=== PATIENT | female | born 1940 | race Caucasian/White ===

== ENCOUNTER 2017-04-13 11:26 | Emergency (ER) | payer MEDICARE, OTHER ==
[~2017-04-13] VITALS: Ht 157.5 cm; Wt 61.2 kg
[~2017-04-13 11:26] MED LIST: ATOR10TA65 PO; CARV3.1260 PO; DEXL60CA2 PO; DICY20TA59 PO; IBUP-1542 PO; LEVO100T87 PO; MECL-77 PO; MEMA5TAB PO; VALS1TAB78 PO
[2017-04-13 11:29] VITALS: Ht 157.5 cm; Wt 61.2 kg
--- NOTE | 2017-04-13 11:56 | ERD ---
ER Documentation Chief Complaint Chief Complaint right side body pain since last night HPI 76y/o female patient with with history of hypothyroidism, presents to the emergency department with her son c/o right flank pain that is started last night. The pain is described as sharp, constant, 6/10, radiated to right pelvic area. The symptoms are associated with general malaise and increased urinary frequency. Aggravating factors: Unknown. Alleviating factors: None. Denies fever, chills, N/V/D. No recent history of previous episodes. Treatment attempted: None. Previous evaluation: None. History was given by patient. ROS SYSTEMIC symptoms: no fever, chills, no night sweats, no weight loss EYE symptoms: No blurred vision, no eye discharge OTOLARYNGEAL symptoms: No hearing loss. No ear pain, no sore throat CARDIOVASCULAR symptoms: No chest pain or discomfort, no palpitations. PULMONARY symptoms: No dyspnea, no cough, no wheezing. GASTROINTESTINAL symptoms: Flank pain, no nausea, no vomiting, no diarrhea MUSCULOSKELETAL symptoms: No arthralgias, no muscle aches. NEUROLOGY symptoms: No confusion, no syncope, no numbness or tingling. SKIN: No rashes Medications Home Meds Active Scripts Nitrofurantoin Monohyd Macrocr* (Macrobid*) 100 Mg Capsr, 100 MG PO BID for 7 Days, CAP Prov:SIERRA MAS MD 04/13/17 Baclofen* (Baclofen*) 10 Mg Tablet, 10 MG PO Q8, #20 TAB Prov:SIERRA MAS MD 04/13/17 Acetaminophen* (Tylenol*) 325 Mg Tablet, 1 TAB PO Q6 Y for PAIN AND OR ELEVATED TEMP, #20 TAB Prov:SIERRA MAS MD 04/13/17 Ibuprofen* (Motrin*) 600 Mg Tab, 600 MG PO Q8, #30 TAB Prov:MARA WOLF DO 02/27/16 Reported Medications Memantine* (Namenda*) 5 Mg Tablet, 5 MG PO BID, #60 TAB 02/27/16 Dicyclomine Hcl* (Bentyl*) 20 Mg Tablet, 20 MG PO TID, TAB 02/27/16 Atorvastatin Calcium (Atorvastatin Calcium) 10 Mg Tablet, 10 MG PO QHS, #30 TAB 10/7/16 Valsartan-Hydrochlorothiazide (Valsartan-HCTZ) 160-25 Mg Tablet, 1 TAB PO DAILY , #30 TAB 02/27/16 Meclizine Hcl* (Meclizine Hcl*) 25 Mg Tablet, 25 MG PO DAILY Y for DIZZINESS, TAB 03/09/15 Carvedilol* (Carvedilol*) 3.125 Mg Tablet, 3.125 MG PO BID, TAB 03/09/15 Levothyroxine Sodium* (Levothyroxine Sodium*) 100 Mcg Tablet, 100 MCG PO DAILY 05/22/12 Dexlansoprazole (Dexilant) 60 Mg , 60 MG PO DAILY 05/22/12 Allergies Allergies: Coded Allergies: No Known Allergy (Unverified , 02/27/16) PMhx/Soc History of Surgery: Yes (THYROIDECTOMY) Anesthesia Reaction: No Hx Neurological Disorder: No Hx Respiratory Disorders: No Hx Cardiac Disorders: Yes (ARRYTHMIA) Hx Psychiatric Problems: No Hx Miscellaneous Medical Probl: No Hx Alcohol Use: No Hx Substance Use: No Hx Tobacco Use: No Physical Exam Vitals Vital Signs Date Time Temp Pulse Resp B/P Pulse Ox O2 Delivery O2 Flow Rate FiO2 04/13/17 11:29 98.5 84 18 169/81 98 Physical Exam Patient is in no acute distress, vital signs stable. Alert and fully oriented. EYES: PERRLA, EOMI, Sclera and conjunctiva appear normal. EARS: Canals clear, tympanic membranes WNL THROAT: Normal oropharynx. NECK: Supple, No lymphadenopathy. Full ROM without pain or tenderness. HEART: RRR, no rubs, murmurs, clicks or gallops. LUNGS: Clear to auscultation. ABDOMEN: Soft, non-tender without masses or hepatosplenomegaly. EXTREMITIES: No edema bilaterally. BACK: Full ROM, no deformity, normal back exam NEURO: Cranial nerves grossly intact, no motor or sensory deficit Results 24 hrs Laboratory Tests Test 04/13/17 12:50 04/13/17 12:59 Urine Color YELLOW Urine Clarity CLEAR Urine pH 5.0 Urine Specific [place] 1.016 Urine Ketones NEGATIVEmg/dL Urine Nitrite NEGATIVEmg/dL Urine Bilirubin NEGATIVEmg/dL Urine Urobilinogen NEGATIVEmg/dL Urine Leukocyte Esterase NEGATIVELeu/ul Urine Microscopic RBC 0/HPF Urine Microscopic WBC 2/HPF Urine Bacteria FEW/HPF Urine Hemoglobin 1+mg/dL Urine Glucose NEGATIVEmg/dL Urine Total Protein NEGATIVEmg/dl Bedside Urine pH (LAB) 5.5 Bedside Urine Protein (LAB) Trace Bedside Urine Glucose (UA) Negative Bedside Urine Ketones (LAB) Negative Bedside Urine Blood 1+ Bedside Urine Nitrite (LAB) Positive Bedside Urine Leukocyte Esterase (L Negative [place] [id number] Radiology Main Line: [phone] DIAGNOSTIC IMAGING REPORT Patient: GINA KANG : 1940 Age: 76 Sex: F MR #: [id number] DOS: 04/13/17 1258 Ordering MD: SIERRA MAS MD Location: [facility] Room/Bed: PROCEDURE: Chest 2 views. CLINICAL INDICATION: Chest pain. TECHNIQUE: PA and lateral views of the chest were obtained. COMPARISON: CR CHEST 03/09/2015 FINDINGS: The heart size is within normal limits. Calcified atherosclerosis is noted in the aorta. Scattered calcified granulomatous disease throughout both lungs appears grossly stable. The lungs are hyperexpanded. No consolidations are identified. No pneumothorax is seen. Osseous structures are intact. IMPRESSION: Calcified atherosclerosis in the aorta. Stable calcified granulomatous disease in both lungs. Hyperexpanded lungs. Overall appearance is unchanged from prior exam. RPTAT: AA .Reji Tanner MD, MD Date Time Electronically viewed and signed by .Reji Tanner MD, MD on 04/13/2017 14:33 .P/ CC: SIERRA MAS MD Procedures/MDM 68y/o white female patient with history of hypothyroidism, presents to the ED c/ o 1 day with right flank pain is . Vital signs stable, Physical exam unremarkable. Differential diagnosis include but not limited to: UTI, musculoskeletal injury, spasm, colitis, viral infection. Pertinent Data: UA: Positive nitrates Physical examination and clinical presentation consistent most likely with UTI. During the ED course the patient remained stable without new complaints. Results and clinical impression discussed with patient who agrees with management. The patient is stable to be treated outpatient and will be discharged home with a Rx for Macrobid and baclofen Side effects of prescribed medications (headache, rash, nausea, vomiting, diarrhea) were reviewed. The patient was instructed to follow up with the primary care provider in the next 48h. If symptoms persist, worsen or new symptoms develop, then patient should return to the ED immediately. Instructions explained and given to patient in Salvadorean with acknowledgment and demonstrated understanding. Disclaimer: Inadvertent spelling and grammatical errors are likely due to EHR/ dictation software use and do not reflect on the overall quality of patient care. Also, please note that the electronic time recorded on this note does not necessarily reflect the actual time of the patient encounter. Departure Diagnosis: Primary Impression: Chest wall pain Additional Impression: UTI (urinary tract infection) Condition: Stable Additional Instructions: Call your primary care doctor TOMORROW for an appointment during the next 1-2 days. See the doctor sooner or return here if your condition worsens before your appointment time. Thank you very much for allowing us to participate in your care. Your health and safety is our top priority at [facility]. Have prescriptions filled and follow precisely the directions on the label. Follow-up with primary care provider during the next 4 days and bring all the information and medications prescribed. If illness has not improved in 2 days, then make an appointment with primary care provider. If the provider is unavailable, return to the Emergency Department immediately. SIERRA MAS MD Apr 13, 2017 11:56
[2017-04-13 13:00] LABS: URINE BLOOD (Dip) POC 1+ (NEGATIVE)
[2017-04-13 13:29] LABS: ADD UMIC YES; UR ASCORBIC ACID NEGATIVE (NEGATIVE); UR BACTERIA FEW /HPF (NONE SEEN); UR BILIRUBIN (Dip) NEGATIVE (NEGATIVE); UR BLOOD (Dip) 1+ mg/dL (NEGATIVE); UR CLARITY CLEAR (CLEAR); UR COLOR YELLOW (YELLOW); UR GLUCOSE (Dip) NEGATIVE (NEGATIVE); UR KETONES (Dip) NEGATIVE (NEGATIVE); UR LEUKOCYTE ESTERASE (Dip) NEGATIVE Leu/ul (NEGATIVE); UR NITRITE (Dip) NEGATIVE (NEGATIVE); UR RBC 0 /HPF (0-5); UR SPECIFIC GRAVITY (Dip) 1.016 (1.003-1.030); UR TOTAL PROTEIN (Dip) NEGATIVE (NEGATIVE); UR UROBILINOGEN (Dip) NEGATIVE (NEGATIVE)
[2017-04-13] MEDS ORDERED: ACET325T33 PO (14:29)
[2017-04-13] MEDS ORDERED: BACL10TA PO (14:29)
--- NOTE | 2017-04-13 14:33 | RADRPT ---
PROCEDURE: Chest 2 views. CLINICAL INDICATION: Chest pain. TECHNIQUE: PA and lateral views of the chest were obtained. COMPARISON: CR CHEST 03/09/2015 FINDINGS: The heart size is within normal limits. Calcified atherosclerosis is noted in the aorta. Scattered c alcified granulomatous disease throughout both lungs appears grossly stable. The lungs are hyperexpa nded. No consolidations are identified. No pneumothorax is seen. Osseous structures are intact. IMPRESSION: Calcified atherosclerosis in the aorta. Stable calcified granulomatous disease in both lungs. Hyperexpanded lungs. Overall appearance is unchanged from prior exam. RPTAT: AA .Reji Tanner MD, Date Time Electronically viewed and signed by .Reji Tanner MD, on 04/13/2017 14:33 .P/
[2017-04-13] MEDS ORDERED: NITR-58 PO (14:44)
== END 2017-04-13 14:58 | disposition home or self-care (01) ==
LOC: FTE 11:26
DX: N39.0 Urinary tract infection, site not specified (principal); R07.89 Other chest pain
CPT/HCPCS: 71020; 81001; 81003; 99285; P9612

== ENCOUNTER 2018-03-01 08:57 | Day surgery (SDC) | END 2018-03-01 17:31 | disposition home or self-care (01) ==

== ENCOUNTER 2018-03-22 20:14 | Emergency (ER) | END 2018-03-22 22:49 | disposition home or self-care (01) ==

== ENCOUNTER 2018-09-29 12:24 | Inpatient (IN) | payer MEDICARE, OTHER ==
[~2018-09-29] VITALS: Ht 165.1 cm; Wt 59.3 kg
[~2018-09-29 12:24] MED LIST changes: +ASPI81TA52 PO; +BRIM10DR10 LEFT EYE; -CARV3.1260 PO; +CARV6.25 PO; +CEPH500C PO; -DEXL60CA2 PO; -DICY20TA59 PO; +ERGO500013 PO; +ERYT1OIN6 LEFT EYE; -IBUP-1542 PO; +KETO5DRO79 LEFT EYE; +LEVO100T82 PO; -LEVO100T87 PO; +LOSA1TAB28 PO; -MECL-77 PO; -MEMA5TAB PO; +PRED5DRO20 LEFT EYE; +RANO500T2 PO; -VALS1TAB78 PO; +[UNRECOGNIZED DRUG - CODE] LEFT EYE
--- NOTE | 2018-09-29 12:50 | ERD ---
ER Documentation Chief Complaint Chief Complaint PAIN WITH SWALLOWING, LIPS SWOLLEN, BURNING FEELING ON R SIDE TORSO X3 DAYS HPI This is an 78-year-old woman with a history of gastritis using omeprazole daily complaining of 30 pound weight loss over the last 3 months mostly due to odynophagia, epigastric pain, pain radiating up to the throat from the epigastrium, daily nausea. She states her symptoms are worse at night when she lays flat and have been increasing in intensity daily over the last 3 months. Patient denies hematemesis, no blood per rectum or melena, no chest pain or shortness of breath, no headache or blurry vision. Patient underwent upper endoscopy about 10 years ago but does not remember the results. ROS All systems reviewed and are negative except as per history of present illness. Medications Home Meds Reported Medications Ergocalciferol (Vitamin D2) (VITAMIN D2) 50,000 Unit Capsule, 41400 UNIT PO Q7D, CAP 09/29/18 Omeprazole* (Omeprazole*) 40 Mg Capsule.dr, 40 MG PO DAILY, #30 CAP 09/29/18 Trjjgc-Ctpinsll-Tecxgxx* (Alexandr RAMÍREZ* 36,000) 36,000 L-114,000-180,000 Unit Capsule.dr, 2 CAP PO WITH MEALS, CAP 09/29/18 Ranolazine* (Ranexa*) 500 Mg Tab.sr.12h, 500 MG PO Q12, TAB 09/29/18 Atorvastatin Calcium (Atorvastatin Calcium) 10 Mg Tablet, 10 MG PO QHS, #30 TAB 09/29/18 Carvedilol* (Carvedilol*) 6.25 Mg Tablet, 6.25 MG PO BID, #60 TAB 09/29/18 Diclofenac Sodium* (Voltaren* Gel) 1% -100 Gm Gel, 2 GM TOP NEEDED, #1 TUB 09/29/18 Levothyroxine Sodium* (Levothyroxine Sodium*) 100 Mcg Tablet, 100 MCG PO BEFORE BREAKFAST, #30 TAB 09/29/18 Discontinued Reported Medications Losartan-Hydrochlorothiazide (Losartan-HCTZ) 100-12.5 Mg Tab, 1 TAB PO DAILY, TAB 03/01/18 Atorvastatin Calcium (Atorvastatin Calcium) 10 Mg Tablet, 10 MG PO QHS, #30 TAB 03/01/18 Levothyroxine Sodium* (Levoxyl*) 100 Mcg Tablet, 100 MCG PO BEFORE BREAKFAST, #30 TAB 03/01/18 Ranolazine* (Ranexa*) 500 Mg Tab.sr.12h, 500 MG PO Q12, TAB 03/01/18 Ergocalciferol (Vitamin D2) (VITAMIN D2) 50,000 Unit Capsule, 94599 UNIT PO EVERY TUESDAY, CAP 03/01/18 Aspirin (Low Dose Aspirin) 81 Mg Tablet.dr, 81 MG PO DAILY, #30 TAB 03/01/18 Carvedilol* (Coreg*) 6.25 Mg Tablet, 6.25 MG PO BID, #60 TAB 03/01/18 Discontinued Scripts Cephalexin* (Cephalexin*) 500 Mg Capsule, 500 MG PO BID for 10 Days, CAP Prov:CHRIS CHINCHILLA MD 03/22/18 Ketorolac Tromethamine Oph (Ketorolac Tromethamine Oph) 0.4%-5 Ml Opht Drops, 1 DROP LEFT EYE QID for pain, #1 EA Prov:CHRIS CHINCHILLA MD 03/22/18 Prednisolone Acetate* (Pred Forte*) 5 Ml Susp, 1 DROP LEFT EYE QID, #1 EA Prov:CHRIS CHINCHILLA MD 03/22/18 Tobramycin-Dexamethasone* (Tobradex* Ophth) 0.3%-0.1% - 2.5 Ml Soln, 1 DROP LEFT EYE q1hr for 1 Day, EA Prov:CHRIS CHINCHILLA MD 03/22/18 Brimonidine Tartrate* (Brimonidine Tartrate*) 0.15%-10ML Drop Opht, 1 DROP LEFT EYE Q8 for pain, #1 EA Prov:CHRIS CHINCHILLA MD 03/22/18 Erythromycin Base (Erythromycin) 1 Gm Oint...g., 1 APPLIC LEFT EYE QHS for 10 Days Prov:CHRIS CHINCHILLA MD 03/22/18 Allergies Allergies: Coded Allergies: Penicillins (Unverified Allergy, Unknown, 09/29/18) PMhx/Soc Hypertension, hyperlipidemia, CHF, hypothyroidism status post total thyroidectomy History of Surgery: Yes (BILAT UPPER LIDS, TOTAL THYROIDECTOMY, REMOVAL FAT UPPER BACK) Anesthesia Reaction: No Hx Neurological Disorder: No Hx Respiratory Disorders: No Hx Cardiac Disorders: Yes (Hypertension, hyperlipidemia, arrhythmia, congestive heart failure) Hx Psychiatric Problems: No Hx Miscellaneous Medical Probl: Yes (Hypothyroidism) Hx Alcohol Use: No Hx Substance Use: No Hx Tobacco Use: No FmHx Family History: No diabetes Physical Exam Vitals Vital Signs Date Temp Pulse Resp B/P (MAP) Pulse Ox O2 O2 Flow FiO2 Time Delivery Rate 09/29/18 Nasal 2 13:59 Cannula 09/29/18 98.2 76 20 153/69 96 12:29 (97) Physical Exam GENERAL: Well-developed, well-nourished, appears dehydrated, afebrile HEENT: Dry mucous membranes, pink conjunctiva, no cervical spine tenderness or step-off deformities, no goiter, no jaundice or icterus, extraocular movements intact without pain. No submandibular induration, and no pharyngeal erythema CARDIAC: Regular rate and rhythm, no murmurs rubs or gallops LUNGS: Clear bilaterally no wheezing crackles or stridor ABDOMEN: Soft nontender, no guarding, no rigidity, no rebound, no psoas sign no obturator sign. Normoactive bowel sounds SKIN: Warm and dry to touch, no abrasions, contusions, or hematomas, no lacerations, no ecchymosis, no target lesions, and without ulcers EXTREMITIES: No clubbing cyanosis or edema, calves are bilaterally symmetrical, no Homans sign, no popliteal cord sign. Distal pulses equal and bilateral PSYCH: Normal affect without agitation or irritability Result Diagram: 09/29/18 1339 09/29/18 1339 Results 24 hrs Laboratory Tests Test 09/29/18 13:39 White Blood Count 3.0 10^3/ul Red Blood Count 4.17 10^6/ul Hemoglobin 12.2 g/dl Hematocrit 36.8 % Mean Corpuscular Volume 88.2 fl Mean Corpuscular Hemoglobin 29.3 pg Mean Corpuscular Hemoglobin Concent 33.2 g/dl Red Cell Distribution Width 11.7 % Platelet Count 119 10^3/UL Mean Platelet Volume 9.7 fl Immature Granulocytes % 0.000 % Neutrophils % 76.7 % Lymphocytes % 10.2 % Monocytes % 9.5 % Eosinophils % 3.3 % Basophils % 0.3 % Nucleated Red Blood Cells % 0.0 /100WBC Immature Granulocytes # 0.000 10^3/ul Neutrophils # 2.3 10^3/ul Lymphocytes # 0.3 10^3/ul Monocytes # 0.3 10^3/ul Eosinophils # 0.1 10^3/ul Basophils # 0.0 10^3/ul Nucleated Red Blood Cells # 0.0 10^3/ul Prothrombin Time 12.3 Sec Prothrombin Time Ratio 1.0 INR International Normalized Ratio 0.90 Activated Partial Thromboplast Time 26.6 Sec Sodium Level 141 mmol/L Potassium Level 4.4 mmol/L Chloride Level 104 mmol/L Carbon Dioxide Level 31 mmol/L Anion Gap 6 Blood Urea Nitrogen 18 mg/dl Creatinine 1.14 mg/dl Est Glomerular Filtrat Rate mL/min mL/min Glucose Level 103 mg/dl Calcium Level 8.5 mg/dl Total Bilirubin 0.4 mg/dl Direct Bilirubin 0.00 mg/dl Indirect Bilirubin 0.4 mg/dl Aspartate Amino Transf (AST/SGOT) 98 IU/L Alanine Aminotransferase (ALT/SGPT) 137 IU/L Alkaline Phosphatase 124 IU/L Troponin I < 0.012 ng/ml Total Protein 7.1 g/dl Albumin 3.9 g/dl Globulin 3.20 g/dl Albumin/Globulin Ratio 1.21 Amylase Level 111 U/L Lipase 319 U/L Current Medications Medications Dose Sig/Tr Start Time Status Last (Trade) Ordered Route PRN Stop Time Admin Dose Reason Admin Sodium 1,000 ml @ Q1H STAT 09/29/18 DC 09/29/18 Chloride 1,000 mls/hr IV 13:10 13:49 09/29/18 14:09 Famotidine 20 mg ONCE STAT 09/29/18 DC 09/29/18 (Pepcid Iv) IV 13:10 13:50 09/29/18 13:20 40 mg ONCE STAT 09/29/18 DC Pantoprazole IV 13:10 (Protonix 09/29/18 13:20 Iv) Ondansetron 4 mg ONCE STAT 09/29/18 DC 09/29/18 HCl (Zofran IV 13:11 13:50 Inj) 09/29/18 13:20 40 ml ONCE STAT 09/29/18 DC 09/29/18 Miscellaneous PO 13:11 13:49 Medication 09/29/18 13:20 (Gi Cocktail (2)) Belladonna/ 2 tab ONCE STAT 09/29/18 DC 09/29/18 Phenobarbital PO 13:11 13:49 () 09/29/18 13:20 40 mg ONCE STAT 09/29/18 DC 09/29/18 Pantoprazole PO 13:21 13:49 (Protonix 09/29/18 13:22 Tab) Procedures/MDM IV line was established patient was placed on conveyor monitor rhythm strip revealed a sinus rhythm at about 80 bpm with upright P and T waves. Patient was afebrile EKG performed, read by me revealed a normal sinus rhythm at 75 bpm, left axis deviation, right ventricular conduction delay QRS duration 100 ms, no concerning ST elevations or depressions noted I administered famotidine 20 mg IV, 1 L normal saline IV for dehydration, Zofran 4 mg IV, pantoprazole 40 mg p.o. x1., And a GI cocktail p.o. CBC reveals a mild leukopenia, electrolytes revealed dehydration, liver function tests revealed mild transaminitis, troponin negative, urinalysis pending I will follow-up. CT scan of the abdomen and pelvis was ordered no signs of acute inflammatory infectious pathology, please refer to radiologist dictation for full report. Patient will be admitted under Dr. Garcia to [facility] for continued medical management and possible GI consultation Departure Diagnosis: Primary Impression: Swallowing disorder Additional Impressions: Unexplained weight loss Dehydration Epigastric abdominal pain Condition: SCOOBY Butler MD September 29, 2018 12:50
[2018-09-29] MEDS ORDERED: SOD CHLORIDE 0.9% 1,000 ML IV STA (13:10)
[2018-09-29] MEDS ORDERED: FAMOTIDINE 20 MG INJ IV STA (13:10)
[2018-09-29] MEDS ORDERED: PANTOPRAZOLE 40 MG INJ IV STA (13:10)
[2018-09-29] MEDS ORDERED: ONDANSETRON 4 MG INJ IV STA (13:11)
[2018-09-29] MEDS ORDERED: LIDOCAINE/MYLANTA 40 ML BTL PO STA (13:11)
[2018-09-29] MEDS ORDERED: BELLADONNA/PHENOBARBITAL TAB PO STA (13:11)
[2018-09-29] MEDS ORDERED: PANTOPRAZOLE (EC) 40 MG TAB PO STA (13:21)
[2018-09-29] MEDS ORDERED: LEVO100T8 PO (13:37)
[2018-09-29] MEDS ORDERED: DICL100G37 TOP (13:37)
[2018-09-29] MEDS ORDERED: ATOR10TA65 PO (13:39)
[2018-09-29] MEDS ORDERED: CARV6.2579 PO (13:39)
[2018-09-29] MEDS ORDERED: RANO500T2 PO (13:39)
[2018-09-29] MEDS ORDERED: OMEP40CA6 PO (13:40)
[2018-09-29] MEDS ORDERED: LIPA1CAP45 PO (13:40)
[2018-09-29] MEDS ORDERED: ERGO500013 PO (13:41)
[2018-09-29] MEDS ORDERED: ERGOCALCIFEROL 50,000 UNIT CAP PO SCH (18:00)
[2018-09-29] MEDS ORDERED: DICLOFENAC SODIUM 1% GEL 100 GM TUBE TP PRN (18:00)
[2018-09-29 18:02] VITALS: Ht 165.1 cm; Wt 59.3 kg
--- NOTE | 2018-09-29 18:30 | CONS ---
Assessment/Plan Assessment/Plan Assessment/Plan (Daily) 1. acute Kidney injury due to Prerenal azotemid due to decreased PO intake 2. Dyphagia 3. H/o CAD 4. H/O HTN 5. H/o Thyroidecotmy, now Hypothyroidsm Plan: seen in ED< IVF D51/2 NS at 50 cc/hr Coreg 6/25 mg BID Levothyroxien for hypothyroidism will follow up Thanks for consultation Consultation Date/Type/Reason Admit Date/Time September 29, 2018 at 14:33 Date of Consultation: September 29, 2018 Type of Consult NEPHROLOGY Reason for Consultation Acute kidney injury Requesting Provider: VANNESSA RECINOS MD Date/Time of Note DATE: 09/29/18 TIME: 18:30 Hx of Present Illness 78-year-old female with PMHx of of chronic GERD, hypertension, possible coronary artery disease, hypothyroidism, status post total thyroidectomy, mild memory impairment. The patient came to ER with difficulty in swallowing. It was painful for her to swallow and she felt pain in the upper part of the chest near the throat. The patient did not have any vomiting. No reported fever or chills. No reported abdominal pain. no oral intake in last 24 hr due to pain with swallowing, GI Dr. Junior has been consulted for dysphagia, On admisison pt was noted to have elevated BUN and Cr, renal has been consulted for acute renal failure on CKD Constitutional: no complaints Eyes: no complaints Respiratory: no complaints Cardiovascular: no complaints Gastrointestinal: pain, other (difficulty swallowing ) Genitourinary: no complaints Musculoskeletal: no complaints Skin: no complaints Neurologic: no complaints Endocrine: no complaints Lymphatic: no complaints Psychological: no complaints Immunologic: no complaints Past Medical History Medical History: coronary artery disease, high cholesterol, hypertension Home Meds Reported Medications Ergocalciferol (Vitamin D2) (VITAMIN D2) 50,000 Unit Capsule, [address] UNIT PO Q7D, CAP 09/29/18 Omeprazole* (Omeprazole*) 40 Mg Capsule., 40 MG PO DAILY, #30 CAP 09/29/18 Xczmui-Oamtwkod-Qwuhgxn* (Crelyndon RAMÍREZ* 36,000) 36,000 L-114,000-180,000 Unit Capsule., 2 CAP PO WITH MEALS, CAP 09/29/18 Ranolazine* (Ranexa*) 500 Mg Tab.sr.12h, 500 MG PO Q12, TAB 09/29/18 Atorvastatin Calcium (Atorvastatin Calcium) 10 Mg Tablet, 10 MG PO QHS, #30 TAB 09/29/18 Carvedilol* (Carvedilol*) 6.25 Mg Tablet, 6.25 MG PO BID, #60 TAB 09/29/18 Diclofenac Sodium* (Voltaren* Gel) 1% -100 Gm Gel, 2 GM TOP NEEDED, #1 TUB 09/29/18 Levothyroxine Sodium* (Levothyroxine Sodium*) 100 Mcg Tablet, 100 MCG PO BEFORE BREAKFAST, #30 TAB 09/29/18 Discontinued Reported Medications Losartan-Hydrochlorothiazide (Losartan-HCTZ) 100-12.5 Mg Tab, 1 TAB PO DAILY, TAB 03/01/18 Atorvastatin Calcium (Atorvastatin Calcium) 10 Mg Tablet, 10 MG PO QHS, #30 TAB 03/01/18 Levothyroxine Sodium* (Levoxyl*) 100 Mcg Tablet, 100 MCG PO BEFORE BREAKFAST, #30 TAB 03/01/18 Ranolazine* (Ranexa*) 500 Mg Tab.sr.12h, 500 MG PO Q12, TAB 03/01/18 Ergocalciferol (Vitamin D2) (VITAMIN D2) 50,000 Unit Capsule, 03142 UNIT PO EVERY TUESDAY, CAP 03/01/18 Aspirin (Low Dose Aspirin) 81 Mg Tablet.dr, 81 MG PO DAILY, #30 TAB 03/01/18 Carvedilol* (Coreg*) 6.25 Mg Tablet, 6.25 MG PO BID, #60 TAB 03/01/18 Discontinued Scripts Cephalexin* (Cephalexin*) 500 Mg Capsule, 500 MG PO BID for 10 Days, CAP Prov:CHRIS CHINCHILLA MD 03/22/18 Ketorolac Tromethamine Oph (Ketorolac Tromethamine Oph) 0.4%-5 Ml Opht Drops, 1 DROP LEFT EYE QID for pain, #1 EA Prov:CHRIS CHINCHILLA MD 03/22/18 Prednisolone Acetate* (Pred Forte*) 5 Ml Susp, 1 DROP LEFT EYE QID, #1 EA Prov:CHRIS CHINCHILLA MD 03/22/18 Tobramycin-Dexamethasone* (Tobradex* Ophth) 0.3%-0.1% - 2.5 Ml Soln, 1 DROP LEFT EYE q1hr for 1 Day, EA Prov:CHRIS CHINCHILLA MD 03/22/18 Brimonidine Tartrate* (Brimonidine Tartrate*) 0.15%-10ML Drop Opht, 1 DROP LEFT EYE Q8 for pain, #1 EA Prov:CHRIS CHINCHILLA MD 03/22/18 Erythromycin Base (Erythromycin) 1 Gm Oint...g., 1 APPLIC LEFT EYE QHS for 10 Days Prov:CHRIS CHINCHILLA MD 03/22/18 Medications Current Medications Dextrose/Sodium Chloride 1,000 ml @ 50 mls/hr Q20H IV ; Start 09/29/18 at 18:00; Status UNV Acetaminophen (Tylenol Tab) 650 mg Q4H PRN PO MILD PAIN(1-3)OR ELEVATED TEMP; Start 09/29/18 at 18:00; Status UNV Levothyroxine Sodium (Synthroid) 100 mcg DAILY@06 PO ; Start 09/30/18 at 06:00; Status UNV Diclofenac Sodium (Voltaren 1% Gel) 2 gm QID PRN TP PAIN; Start 09/29/18 at 18:00; Status UNV Carvedilol (Coreg) 6.25 mg BID PO ; Start 09/29/18 at 21:00; Status UNV Ranolazine (Ranexa) 500 mg Q12 PO ; Start 09/29/18 at 21:00; Status UNV Amylase/Lipase/ Protease (CREON ([id number])) 2 cap WITH MEALS PO ; Start 09/29/18 at 17:55; Status UNV Miscellaneous Information 40 mg DAILY ORAL ; Start 09/30/18 at 09:00; Status UNV Ergocalciferol (Drisdol) 50,000 unit Q7D PO ; Start 09/29/18 at 18:00; Status UNV Enoxaparin Sodium (Lovenox) 30 mg DAILY SC ; Start 09/29/18 at 21:00; Status UNV Allergies: Coded Allergies: Penicillins (Unverified Allergy, Unknown, 09/29/18) Past Surgical History Past Surgical Hx: other (Thyroidectomy, left eye cataract surery ) Family History Significant Family History: no pertinent family hx Social History Alcohol Use: none Smoking Status: Never smoker Drug Use: none Exam/Review of Systems Exam Vitals Vital Signs Date Temp Pulse Resp B/P (MAP) Pulse Ox O2 O2 Flow FiO2 Time Delivery Rate 09/29/18 98.6 68 16 147/63 98 Room Air 16:10 (91) 09/29/18 2 13:59 Constitutional: alert Psych: no complaints Head: normocephalic Eyes: nl conjunctiva ENMT: nl external ears & nose Neck: supple, non-tender Respiratory: normal air movement, congested cough, diminished breath sounds Cardiovascular: regular rate and rhythm, nl pulses Gastrointestinal: soft, non-tender Musculoskeletal: nl extremities to inspection, muscle weakness, swelling Extremities: normal pulses Neurological: FIRE CHIEF II-XII intact, nl mental status, nl speech Skin: nl turgor Lymph: nl lymph nodes Results Result Diagram: 09/29/18 1339 09/29/18 1339 Results 24hrs Laboratory Tests Test 09/29/18 13:39 09/29/18 16:13 White Blood Count 3.0 #L Red Blood Count 4.17 L Hemoglobin 12.2 Hematocrit 36.8 L Mean Corpuscular Volume 88.2 Mean Corpuscular Hemoglobin 29.3 Mean Corpuscular Hemoglobin Concent 33.2 Red Cell Distribution Width 11.7 Platelet Count 119 L Mean Platelet Volume 9.7 Immature Granulocytes % 0.000 L Neutrophils % 76.7 Lymphocytes % 10.2 L Monocytes % 9.5 Eosinophils % 3.3 Basophils % 0.3 Nucleated Red Blood Cells % 0.0 Immature Granulocytes # 0.000 Neutrophils # 2.3 Lymphocytes # 0.3 L Monocytes # 0.3 Eosinophils # 0.1 Basophils # 0.0 Nucleated Red Blood Cells # 0.0 Prothrombin Time 12.3 Prothrombin Time Ratio 1.0 INR International Normalized Ratio 0.90 Activated Partial Thromboplast Time 26.6 Sodium Level 141 Potassium Level 4.4 Chloride Level 104 Carbon Dioxide Level 31 Anion Gap 6 Blood Urea Nitrogen 18 Creatinine 1.14 H Est Glomerular Filtrat Rate mL/min Glucose Level 103 Calcium Level 8.5 Total Bilirubin 0.4 Direct Bilirubin 0.00 Indirect Bilirubin 0.4 Aspartate Amino Transf (AST/SGOT) 98 H Alanine Aminotransferase (ALT/SGPT) 137 H Alkaline Phosphatase 124 H Troponin I < 0.012 Total Protein 7.1 Albumin 3.9 Globulin 3.20 Albumin/Globulin Ratio 1.21 Amylase Level 111 Lipase 319 H Urine Color RED Urine Clarity CLOUDY A Urine pH 7.0 Urine Specific [place] 1.006 Urine Ketones NEGATIVE Urine Nitrite POSITIVE A Urine Bilirubin NEGATIVE Urine Urobilinogen NEGATIVE Urine Leukocyte Esterase 3+ H Urine Microscopic RBC 3 Urine Microscopic WBC > 182 H Urine Bacteria FEW A Urine Hemoglobin 1+ H Urine Glucose NEGATIVE Urine Total Protein NEGATIVE Medications Medication Current Medications Dextrose/Sodium Chloride 1,000 ml @ 50 mls/hr Q20H IV ; Start 09/29/18 at 18:00; Status UNV Acetaminophen (Tylenol Tab) 650 mg Q4H PRN PO MILD PAIN(1-3)OR ELEVATED TEMP; Start 09/29/18 at 18:00; Status UNV Levothyroxine Sodium (Synthroid) 100 mcg DAILY@06 PO ; Start 09/30/18 at 06:00; Status UNV Diclofenac Sodium (Voltaren 1% Gel) 2 gm QID PRN TP PAIN; Start 09/29/18 at 18:00; Status UNV Carvedilol (Coreg) 6.25 mg BID PO ; Start 09/29/18 at 21:00; Status UNV Ranolazine (Ranexa) 500 mg Q12 PO ; Start 09/29/18 at 21:00; Status UNV Amylase/Lipase/ Protease (CREON ([id number])) 2 cap WITH MEALS PO ; Start 09/29/18 at 17:55; Status UNV Miscellaneous Information 40 mg DAILY ORAL ; Start 09/30/18 at 09:00; Status UNV Ergocalciferol (Drisdol) 50,000 unit Q7D PO ; Start 09/29/18 at 18:00; Status UNV Enoxaparin Sodium (Lovenox) 30 mg DAILY SC ; Start 09/29/18 at 21:00; Status UNV MEGHAN BERNARD MD September 29, 2018 18:30
[2018-09-29] MEDS: DEXTROSE 5%-0.45% NACL 1,000 ML IV SCH (18:44)
--- NOTE | 2018-09-29 19:22 | HP ---
DATE OF ADMISSION: 09/29/2018 CHIEF COMPLAINT: Dysphagia and odynophagia. HISTORY OF PRESENT ILLNESS: The patient is an 78-year-old female well known to me from previous admi ssion. The patient has a history of chronic GERD for which she was taking Prilosec. The patient als o has history of hypertension, possible coronary artery disease, hypothyroidism, status post total th yroidectomy, mild memory impairment. The patient came to ER with difficulty in swallowing. It was p ainful for her to swallow and she felt pain in the upper part of the chest near the throat. The alex ent did not have any vomiting. No reported fever or chills. No reported abdominal pain. No reporte d chronic anorexia, although the patient for the last 24 hours had not been eating well. The patient did not have any exertional chest pain recently. No reported leg edema. No reported congestive hea rt failure. No reported headache, dizziness, syncope. No history of dizziness. No history of acute skin rash or any joint swelling. REVIEW OF SYSTEMS: As above, total of 12 systems reviewed, all pertinent positive and negative findi ngs have been described in the HPI. History is obtained with help of medical record and after discussion with the patient's daughter, Josué robert. The patient was seen in the ER and was noted to have stable vital signs. The patient was afebr ile. The patient was slightly leukopenic with a white count of 3, platelet 119, although back in 201 5 she had similar CBC of mild leukopenia and thrombocytopenia. The patient will be admitted for furt her evaluation and management. PAST MEDICAL HISTORY: As stated above. PAST SURGICAL HISTORY: The patient is status post left eye cataract repair at [facility] in 2018. The patient is also status post thyroidectomy. ALLERGIES: THE PATIENT'S DAUGHTER REPORTED THAT SHE IS ALLERGIC TO SOME ANTIBIOTIC, BUT COULD NOT LA OVIDE ANY DETAIL. FAMILY HISTORY: Negative for patient's condition. PHYSICAL EXAMINATION: GENERAL: Revealed the patient to be awake, alert, fairly oriented. VITAL SIGNS: Today, temperature 98.6, pulse 68, respirations 16, blood pressure 147/63, O2 saturatio n 98% on room air. HEENT: Atraumatic, normocephalic head. Conjunctivae and lids are normal. Extraocular movements are intact. Pupils are round, react to light. Nose and ears are normal. Oropharynx is grossly negativ e. NECK: Supple. No mass, no thyromegaly, no lymphadenopathy. LUNGS: Fairly clear. No use of accessory muscles. CARDIOVASCULAR: Regular rate and rhythm. S1, S2 normal. No murmur. ABDOMEN: Soft, nondistended, nontender. No palpable mass or pulsatile mass. EXTREMITIES: No leg edema. Pedal pulses are palpable. SKIN: Without acute rash or ulcer. NEUROLOGIC: The patient is awake, alert, fairly oriented with no gross focal deficit. LABORATORY DATA: WBC 3, hemoglobin 12.2, platelet 119. Sodium 141, potassium 4.4, BUN 18, creatinin e 1.14, glucose 103, calcium 8.5. AST 98, ALT 137, alkaline phosphatase 124. Troponin negative. Al bumin 3.9. Lipase 319, but back in 2016 she also had mildly elevated lipase; however, patient does n ot have any evidence of vomiting or abdominal tenderness. DIAGNOSTIC DATA: CT scan of the abdomen: No evidence of acute intraabdominal or pelvic inflammator y process. No evidence of bowel obstruction or constipation present. No gross renal or ureteral rosalba culi. No evidence of free fluid or free air. Right middle lobe of the lung postsurgical changes. IMPRESSION: 1. Dysphagia and odynophagia. The patient will be started on clear liquid diet. We will start her on Protonix to 40 mg twice a day. We will give gentle IV hydration due to slightly elevated creatini ne. We will hold off on her Lipitor because of elevated liver enzymes. 2. Possible coronary artery disease. Continue Ranexa, Coreg. 3. Hypothyroidism secondary to thyroidectomy. Continue previous dose of Synthroid and we will obtai n TSH and T4. 4. For deep venous thrombosis prophylaxis, we will start Lovenox. The patient apparently does have chronically elevated lipase. Her home medications had Creon 2 capsules t.i.d. with meals; however, d etails are not available. I spoke with Dr. Junior from GI standpoint. Plan of care was discussed with patient's daughter in de tail. We will continue to follow. Dictated By: VANNESSA TREVIÑO/GENEVA Conf#: [id number] DID#: [id number]
[2018-09-29] MEDS: CREON (12k-38k-60k) 1 CAP PO SCH (19:30)
[2018-09-29 20:13] VITALS: BP 129/71; PULSE 83; RESP 18
[2018-09-29] MEDS: ENOXAPARIN 30 MG/0.3 ML SYG SC SCH (20:28)
[2018-09-29] MEDS: RANOLAZINE (SR) 500 MG TAB PO SCH (21:00)
[2018-09-30 02:43] VITALS: BP 122/70; PULSE 80; RESP 18
[2018-09-30] MEDS: LEVOTHYROXINE 100 MCG TAB PO SCH (05:10)
[2018-09-30] MEDS: PANTOPRAZOLE (EC) 40 MG TAB PO SCH ×2 (05:11→18:24)
[2018-09-30] MEDS ORDERED: PANTOPRAZOLE (EC) 40 MG TAB PO SCH (06:00)
[2018-09-30 07:27] VITALS: BP 132/58; PULSE 64; RESP 14
[2018-09-30] MEDS: CREON (12k-38k-60k) 1 CAP PO SCH ×3 (09:00→18:02)
[2018-09-30] MEDS: RANOLAZINE (SR) 500 MG TAB PO SCH ×2 (09:00→20:32)
[2018-09-30] MEDS: ENOXAPARIN 30 MG/0.3 ML SYG SC SCH (09:04)
[2018-09-30] MEDS: DEXTROSE 5%-0.45% NACL 1,000 ML IV SCH (12:10)
--- NOTE | 2018-09-30 13:16 | CONS ---
Assessment/Plan Assessment/Plan Assessment/Plan (Daily) 1. acute Kidney injury due to Prerenal azotemid due to decreased PO intake 2. Dyphagia 3. H/o CAD 4. H/O HTN 5. H/o Thyroidecotmy, now Hypothyroidsm Plan: BUN/Cr 15/1.24, other electrolytes stable IVF D51/2 NS at 50 cc/hr Coreg 6/25 mg BID Levothyroxien for hypothyroidism will follow up Consultation Date/Type/Reason Admit Date/Time September 29, 2018 at 14:33 Initial Consult Date Date/Time of Note DATE: 09/30/18 TIME: 13:16 24 HR Interval Summary Free Text/Dictation BUN/Cr 15/1.24, other electrolytes stable, BP stable Exam/Review of Systems Exam Vitals Vital Signs Date Temp Pulse Resp B/P (MAP) Pulse Ox O2 O2 Flow FiO2 Time Delivery Rate 09/30/18 98.2 64 14 132/58 96 Room Air 07:27 (82) 09/29/18 2 13:59 Intake and Output 09/29/18 09/29/18 09/30/18 1515:00 23:00 07:00 IntakeIntake Total 100 ml 650 ml BalanceBalance 100 ml 650 ml Exam Constitutional: alert Respiratory: normal air movement, congested cough, diminished breath sounds Cardiovascular: regular rate and rhythm, nl pulses Gastrointestinal: soft, non-tender Musculoskeletal: nl extremities to inspection, muscle weakness, swelling Extremities: normal pulses Neurological: SAFETY AND HEALTH MANAGER II-XII intact, nl mental status, nl speech Results Result Diagram: 09/30/18 0449 09/30/18 044 Results 24hrs Laboratory Tests Test 09/29/18 13:39 09/29/18 16:13 09/30/18 04:49 White Blood Count 3.0 #L 2.9 L Red Blood Count 4.17 L 3.97 L Hemoglobin 12.2 11.5 L Hematocrit 36.8 L 35.5 L Mean Corpuscular Volume 88.2 89.4 Mean Corpuscular Hemoglobin 29.3 29.0 Mean Corpuscular Hemoglobin Concent 33.2 32.4 Red Cell Distribution Width 11.7 11.8 Platelet Count 119 L 108 L Mean Platelet Volume 9.7 10.2 Immature Granulocytes % 0.000 L 0.300 Neutrophils % 76.7 70.2 Lymphocytes % 10.2 L 13.6 L Monocytes % 9.5 11.8 H Eosinophils % 3.3 3.8 Basophils % 0.3 0.3 Nucleated Red Blood Cells % 0.0 0.0 Immature Granulocytes # 0.000 0.010 Neutrophils # 2.3 2.0 Lymphocytes # 0.3 L 0.4 L Monocytes # 0.3 0.3 Eosinophils # 0.1 0.1 Basophils # 0.0 0.0 Nucleated Red Blood Cells # 0.0 0.0 Prothrombin Time 12.3 Prothrombin Time Ratio 1.0 INR International Normalized Ratio 0.90 Activated Partial Thromboplast Time 26.6 Sodium Level 141 142 Potassium Level 4.4 4.5 Chloride Level 104 105 Carbon Dioxide Level 31 32 H Anion Gap 6 5 Blood Urea Nitrogen 18 15 Creatinine 1.14 H 1.24 H Est Glomerular Filtrat Rate mL/min Glucose Level 103 99 Calcium Level 8.5 8.5 Total Bilirubin 0.4 0.4 Direct Bilirubin 0.00 0.00 Indirect Bilirubin 0.4 0.4 Aspartate Amino Transf (AST/SGOT) 98 H 65 H Alanine Aminotransferase (ALT/SGPT) 137 H 108 H Alkaline Phosphatase 124 H 99 Troponin I < 0.012 Total Protein 7.1 6.2 Albumin 3.9 3.4 Globulin 3.20 2.80 Albumin/Globulin Ratio 1.21 1.21 Amylase Level 111 Lipase 319 H Urine Color RED Urine Clarity CLOUDY A Urine pH 7.0 Urine Specific [place] 1.006 Urine Ketones NEGATIVE Urine Nitrite POSITIVE A Urine Bilirubin NEGATIVE Urine Urobilinogen NEGATIVE Urine Leukocyte Esterase 3+ H Urine Microscopic RBC 3 Urine Microscopic WBC > 182 H Urine Bacteria FEW A Urine Hemoglobin 1+ H Urine Glucose NEGATIVE Urine Total Protein NEGATIVE Triglycerides Level 126 Cholesterol Level 175 LDL Cholesterol, Calculated 109 HDL Cholesterol 41 Cholesterol/HDL Ratio 4.2 Thyroid Stimulating Hormone (TSH) 6.160 H Free Thyroxine 0.79 L Medications Medication Current Medications Dextrose/Sodium Chloride 1,000 ml @ 50 mls/hr Q20H IV Last administered on 09/30/18at 12:10; Admin Dose 50 MLS/HR; Start 09/29/18 at 18:00 Acetaminophen (Tylenol Tab) 650 mg Q4H PRN PO MILD PAIN(1-3)OR ELEVATED TEMP; Start 09/29/18 at 18:00 Levothyroxine Sodium (Synthroid) 100 mcg DAILY@06 PO Last administered on 09/30/18 05:10; Admin Dose 100 MCG; Start 09/30/18 at 06:00 Diclofenac Sodium (Voltaren 1% Gel) 2 gm QID PRN TP PAIN; Start 09/29/18 at 18:00 Carvedilol (Coreg) 6.25 mg BID PO Last administered on 09/30/18 09:00; Admin Dose 6.25 MG; Start 09/29/18 at 21:00 Ranolazine (Ranexa) 500 mg Q12 PO Last administered on 09/30/18 09:00; Admin Dose 500 MG; Start 09/29/18 at 21:00 Amylase/Lipase/ Protease (CREON ([id number])) 2 cap WITH MEALS PO Last administered on 09/30/18 12:10; Admin Dose 2 CAP; Start 09/29/18 at 19:30 Ergocalciferol (Drisdol) 50,000 unit Q7D PO Last administered on 09/29/18at 18:43; Admin Dose 50,000 UNIT; Start 09/29/18 at 18:00 Enoxaparin Sodium (Lovenox) 30 mg DAILY SC Last administered on 09/30/18 09:04; Admin Dose 30 MG; Start 09/29/18 at 21:00 Pantoprazole (Protonix Tab) 40 mg BID@0600,1800 PO Last administered on 09/30/18 05:11; Admin Dose 40 MG; Start 09/30/18 at 06:00 MEGHAN BERNARD MD September 30, 2018 13:16
--- NOTE | 2018-09-30 14:28 | PN ---
Date/Time of Note Date/Time of Note DATE: 09/30/18 TIME: 14:27 Assessment/Plan VTE Prophylaxis Risk score (from Ns)>0 risk: 5 SCD applied (from Nsg): Yes Lines/Catheters IV Catheter Type (from Nrs): Peripheral IV Urinary Cath still in place: No Assessment/Plan Assessment/Plan 1. Dysphagia and odynophagia. The patient will be started on clear liquid diet. We will start her on Protonix to 40 mg twice a day. We will give gentle IV hydration due to slightly elevated creatinine. We will hold off on her Lipitor because of elevated liver enzymes. 2. Possible coronary artery disease. Continue Ranexa, Coreg. 3. Hypothyroidism secondary to thyroidectomy. Continue previous dose of Synthroid and we will obtain TSH and T4. 4. For deep venous thrombosis prophylaxis, we will start Lovenox. The patient apparently does have chronically elevated lipase. Her home medications had Creon 2 capsules t.i.d. with meals; however, details are not available. Result Diagram: 09/30/18 0449 09/30/18 0449 Results 24hrs Laboratory Tests Test 09/29/18 16:13 09/30/18 04:49 Urine Color RED Urine Clarity CLOUDY A Urine pH 7.0 Urine Specific [place] 1.006 Urine Ketones NEGATIVE Urine Nitrite POSITIVE A Urine Bilirubin NEGATIVE Urine Urobilinogen NEGATIVE Urine Leukocyte Esterase 3+ H Urine Microscopic RBC 3 Urine Microscopic WBC > 182 H Urine Bacteria FEW A Urine Hemoglobin 1+ H Urine Glucose NEGATIVE Urine Total Protein NEGATIVE White Blood Count 2.9 L Red Blood Count 3.97 L Hemoglobin 11.5 L Hematocrit 35.5 L Mean Corpuscular Volume 89.4 Mean Corpuscular Hemoglobin 29.0 Mean Corpuscular Hemoglobin Concent 32.4 Red Cell Distribution Width 11.8 Platelet Count 108 L Mean Platelet Volume 10.2 Immature Granulocytes % 0.300 Neutrophils % 70.2 Lymphocytes % 13.6 L Monocytes % 11.8 H Eosinophils % 3.8 Basophils % 0.3 Nucleated Red Blood Cells % 0.0 Immature Granulocytes # 0.010 Neutrophils # 2.0 Lymphocytes # 0.4 L Monocytes # 0.3 Eosinophils # 0.1 Basophils # 0.0 Nucleated Red Blood Cells # 0.0 Sodium Level 142 Potassium Level 4.5 Chloride Level 105 Carbon Dioxide Level 32 H Anion Gap 5 Blood Urea Nitrogen 15 Creatinine 1.24 H Est Glomerular Filtrat Rate mL/min Glucose Level 99 Calcium Level 8.5 Total Bilirubin 0.4 Direct Bilirubin 0.00 Indirect Bilirubin 0.4 Aspartate Amino Transf (AST/SGOT) 65 H Alanine Aminotransferase (ALT/SGPT) 108 H Alkaline Phosphatase 99 Total Protein 6.2 Albumin 3.4 Globulin 2.80 Albumin/Globulin Ratio 1.21 Triglycerides Level 126 Cholesterol Level 175 LDL Cholesterol, Calculated 109 HDL Cholesterol 41 Cholesterol/HDL Ratio 4.2 Thyroid Stimulating Hormone (TSH) 6.160 H Free Thyroxine 0.79 L Exam/Review of Systems Exam Vitals Vital Signs Date Temp Pulse Resp B/P (MAP) Pulse Ox O2 O2 Flow FiO2 Time Delivery Rate 09/30/18 98.2 64 14 132/58 96 Room Air 07:27 (82) 09/29/18 2 13:59 Intake and Output 09/29/18 09/29/18 09/30/18 1515:00 23:00 07:00 IntakeIntake Total 100 ml 650 ml BalanceBalance 100 ml 650 ml Results Results 24hrs Laboratory Tests Test 09/29/18 16:13 09/30/18 04:49 Urine Color RED Urine Clarity CLOUDY A Urine pH 7.0 Urine Specific [place] 1.006 Urine Ketones NEGATIVE Urine Nitrite POSITIVE A Urine Bilirubin NEGATIVE Urine Urobilinogen NEGATIVE Urine Leukocyte Esterase 3+ H Urine Microscopic RBC 3 Urine Microscopic WBC > 182 H Urine Bacteria FEW A Urine Hemoglobin 1+ H Urine Glucose NEGATIVE Urine Total Protein NEGATIVE White Blood Count 2.9 L Red Blood Count 3.97 L Hemoglobin 11.5 L Hematocrit 35.5 L Mean Corpuscular Volume 89.4 Mean Corpuscular Hemoglobin 29.0 Mean Corpuscular Hemoglobin Concent 32.4 Red Cell Distribution Width 11.8 Platelet Count 108 L Mean Platelet Volume 10.2 Immature Granulocytes % 0.300 Neutrophils % 70.2 Lymphocytes % 13.6 L Monocytes % 11.8 H Eosinophils % 3.8 Basophils % 0.3 Nucleated Red Blood Cells % 0.0 Immature Granulocytes # 0.010 Neutrophils # 2.0 Lymphocytes # 0.4 L Monocytes # 0.3 Eosinophils # 0.1 Basophils # 0.0 Nucleated Red Blood Cells # 0.0 Sodium Level 142 Potassium Level 4.5 Chloride Level 105 Carbon Dioxide Level 32 H Anion Gap 5 Blood Urea Nitrogen 15 Creatinine 1.24 H Est Glomerular Filtrat Rate mL/min Glucose Level 99 Calcium Level 8.5 Total Bilirubin 0.4 Direct Bilirubin 0.00 Indirect Bilirubin 0.4 Aspartate Amino Transf (AST/SGOT) 65 H Alanine Aminotransferase (ALT/SGPT) 108 H Alkaline Phosphatase 99 Total Protein 6.2 Albumin 3.4 Globulin 2.80 Albumin/Globulin Ratio 1.21 Triglycerides Level 126 Cholesterol Level 175 LDL Cholesterol, Calculated 109 HDL Cholesterol 41 Cholesterol/HDL Ratio 4.2 Thyroid Stimulating Hormone (TSH) 6.160 H Free Thyroxine 0.79 L Medications Medication Current Medications Dextrose/Sodium Chloride 1,000 ml @ 50 mls/hr Q20H IV Last administered on 09/30/18 12:10; Admin Dose 50 MLS/HR; Start 09/29/18 at 18:00 Acetaminophen (Tylenol Tab) 650 mg Q4H PRN PO MILD PAIN(1-3)OR ELEVATED TEMP; Start 09/29/18 at 18:00 Levothyroxine Sodium (Synthroid) 100 mcg DAILY@06 PO Last administered on 09/30/18 05:10; Admin Dose 100 MCG; Start 09/30/18 at 06:00 Diclofenac Sodium (Voltaren 1% Gel) 2 gm QID PRN TP PAIN; Start 09/29/18 at 18 :00 Carvedilol (Coreg) 6.25 mg BID PO Last administered on 09/30/18 09:00; Admin Dose 6.25 MG; Start 09/29/18 at 21:00 Ranolazine (Ranexa) 500 mg Q12 PO Last administered on 09/30/18 09:00; Admin Dose 500 MG; Start 09/29/18 at 21:00 Amylase/Lipase/ Protease (CREON ([id number])) 2 cap WITH MEALS PO Last administered on 09/30/18 12:10; Admin Dose 2 CAP; Start 09/29/18 at 19:30 Ergocalciferol (Drisdol) 50,000 unit Q7D PO Last administered on 09/29/18 18:43; Admin Dose 50,000 UNIT; Start 09/29/18 at 18:00 Enoxaparin Sodium (Lovenox) 30 mg DAILY SC Last administered on 09/30/18 09:04; Admin Dose 30 MG; Start 09/29/18 at 21:00 Pantoprazole (Protonix Tab) 40 mg BID@0600,1800 PO Last administered on 09/30/18at 05:11; Admin Dose 40 MG; Start 09/30/18 at 06:00 ELIA COOK September 30, 2018 14:28
[2018-09-30 14:38] VITALS: BP 163/70; PULSE 63; RESP 16
--- NOTE | 2018-09-30 16:20 | PN ---
Date/Time of Note Date/Time of Note DATE: 09/30/18 TIME: 14:28 Assessment/Plan VTE Prophylaxis Risk score (from Nsg)>0 risk: 5 SCD applied (from Nsg): Yes Lines/Catheters IV Catheter Type (from Nrs): Peripheral IV Urinary Cath still in place: No Assessment/Plan Assessment/Plan 1. Dysphagia and odynophagia. The patient will be started on clear liquid diet. We will start her on Protonix to 40 mg twice a day. We will give gentle IV hydration due to slightly elevated creatinine. We will hold off on her Lipitor because of elevated liver enzymes. 2. Possible coronary artery disease. Continue Ranexa, Coreg. 3. Hypothyroidism secondary to thyroidectomy. Continue previous dose of Synthroid and we will obtain TSH and T4. 4. wojciech -nephro consult 5.chronically elevated lipasHer home medications had Creon 2 capsules t.i.d. with meals; however, details are not available. 6. For deep venous thrombosis prophylaxis, we will start Lovenox. Result Diagram: 09/30/18 0449 09/30/18 0449 Results 24hrs Laboratory Tests Test 09/29/18 16:13 09/30/18 04:49 Urine Color RED Urine Clarity CLOUDY A Urine pH 7.0 Urine Specific [place] 1.006 Urine Ketones NEGATIVE Urine Nitrite POSITIVE A Urine Bilirubin NEGATIVE Urine Urobilinogen NEGATIVE Urine Leukocyte Esterase 3+ H Urine Microscopic RBC 3 Urine Microscopic WBC > 182 H Urine Bacteria FEW A Urine Hemoglobin 1+ H Urine Glucose NEGATIVE Urine Total Protein NEGATIVE White Blood Count 2.9 L Red Blood Count 3.97 L Hemoglobin 11.5 L Hematocrit 35.5 L Mean Corpuscular Volume 89.4 Mean Corpuscular Hemoglobin 29.0 Mean Corpuscular Hemoglobin Concent 32.4 Red Cell Distribution Width 11.8 Platelet Count 108 L Mean Platelet Volume 10.2 Immature Granulocytes % 0.300 Neutrophils % 70.2 Lymphocytes % 13.6 L Monocytes % 11.8 H Eosinophils % 3.8 Basophils % 0.3 Nucleated Red Blood Cells % 0.0 Immature Granulocytes # 0.010 Neutrophils # 2.0 Lymphocytes # 0.4 L Monocytes # 0.3 Eosinophils # 0.1 Basophils # 0.0 Nucleated Red Blood Cells # 0.0 Sodium Level 142 Potassium Level 4.5 Chloride Level 105 Carbon Dioxide Level 32 H Anion Gap 5 Blood Urea Nitrogen 15 Creatinine 1.24 H Est Glomerular Filtrat Rate mL/min Glucose Level 99 Calcium Level 8.5 Total Bilirubin 0.4 Direct Bilirubin 0.00 Indirect Bilirubin 0.4 Aspartate Amino Transf (AST/SGOT) 65 H Alanine Aminotransferase (ALT/SGPT) 108 H Alkaline Phosphatase 99 Total Protein 6.2 Albumin 3.4 Globulin 2.80 Albumin/Globulin Ratio 1.21 Triglycerides Level 126 Cholesterol Level 175 LDL Cholesterol, Calculated 109 HDL Cholesterol 41 Cholesterol/HDL Ratio 4.2 Thyroid Stimulating Hormone (TSH) 6.160 H Free Thyroxine 0.79 L Exam/Review of Systems Exam Vitals Vital Signs Date Temp Pulse Resp B/P (MAP) Pulse Ox O2 O2 Flow FiO2 Time Delivery Rate 09/30/18 98.2 64 14 132/58 96 Room Air 07:27 (82) 09/29/18 2 13:59 Intake and Output 09/29/18 09/29/18 09/30/18 1515:00 23:00 07:00 IntakeIntake Total 100 ml 650 ml BalanceBalance 100 ml 650 ml Results Results 24hrs Laboratory Tests Test 09/29/18 16:13 09/30/18 04:49 Urine Color RED Urine Clarity CLOUDY A Urine pH 7.0 Urine Specific [place] 1.006 Urine Ketones NEGATIVE Urine Nitrite POSITIVE A Urine Bilirubin NEGATIVE Urine Urobilinogen NEGATIVE Urine Leukocyte Esterase 3+ H Urine Microscopic RBC 3 Urine Microscopic WBC > 182 H Urine Bacteria FEW A Urine Hemoglobin 1+ H Urine Glucose NEGATIVE Urine Total Protein NEGATIVE White Blood Count 2.9 L Red Blood Count 3.97 L Hemoglobin 11.5 L Hematocrit 35.5 L Mean Corpuscular Volume 89.4 Mean Corpuscular Hemoglobin 29.0 Mean Corpuscular Hemoglobin Concent 32.4 Red Cell Distribution Width 11.8 Platelet Count 108 L Mean Platelet Volume 10.2 Immature Granulocytes % 0.300 Neutrophils % 70.2 Lymphocytes % 13.6 L Monocytes % 11.8 H Eosinophils % 3.8 Basophils % 0.3 Nucleated Red Blood Cells % 0.0 Immature Granulocytes # 0.010 Neutrophils # 2.0 Lymphocytes # 0.4 L Monocytes # 0.3 Eosinophils # 0.1 Basophils # 0.0 Nucleated Red Blood Cells # 0.0 Sodium Level 142 Potassium Level 4.5 Chloride Level 105 Carbon Dioxide Level 32 H Anion Gap 5 Blood Urea Nitrogen 15 Creatinine 1.24 H Est Glomerular Filtrat Rate mL/min Glucose Level 99 Calcium Level 8.5 Total Bilirubin 0.4 Direct Bilirubin 0.00 Indirect Bilirubin 0.4 Aspartate Amino Transf (AST/SGOT) 65 H Alanine Aminotransferase (ALT/SGPT) 108 H Alkaline Phosphatase 99 Total Protein 6.2 Albumin 3.4 Globulin 2.80 Albumin/Globulin Ratio 1.21 Triglycerides Level 126 Cholesterol Level 175 LDL Cholesterol, Calculated 109 HDL Cholesterol 41 Cholesterol/HDL Ratio 4.2 Thyroid Stimulating Hormone (TSH) 6.160 H Free Thyroxine 0.79 L Medications Medication Current Medications Dextrose/Sodium Chloride 1,000 ml @ 50 mls/hr Q20H IV Last administered on 09/30/18 12:10; Admin Dose 50 MLS/HR; Start 09/29/18 at 18:00 Acetaminophen (Tylenol Tab) 650 mg Q4H PRN PO MILD PAIN(1-3)OR ELEVATED TEMP; Start 09/29/18 at 18:00 Levothyroxine Sodium (Synthroid) 100 mcg DAILY@06 PO Last administered on 09/30/18 05:10; Admin Dose 100 MCG; Start 09/30/18 at 06:00 Diclofenac Sodium (Voltaren 1% Gel) 2 gm QID PRN TP PAIN; Start 09/29/18 at 18:00 Carvedilol (Coreg) 6.25 mg BID PO Last administered on 09/30/18 09:00; Admin Dose 6.25 MG; Start 09/29/18 at 21:00 Ranolazine (Ranexa) 500 mg Q12 PO Last administered on 09/30/18 09:00; Admin Dose 500 MG; Start 09/29/18 at 21:00 Amylase/Lipase/ Protease (CREON ([id number])) 2 cap WITH MEALS PO Last a dministered on 09/30/18 12:10; Admin Dose 2 CAP; Start 09/29/18 at 19:30 Ergocalciferol (Drisdol) 50,000 unit Q7D PO Last administered on 09/29/18 18:43; Admin Dose 50,000 UNIT; Start 09/29/18 at 18:00 Enoxaparin Sodium (Lovenox) 30 mg DAILY SC Last administered on 09/30/18 09:04; Admin Dose 30 MG; Start 09/29/18 at 21:00 Pantoprazole (Protonix Tab) 40 mg BID@0600,1800 PO Last administered on 09/30/18at 05:11; Admin Dose 40 MG; Start 09/30/18 at 06:00 ELIA COOK September 30, 2018 14:38
[2018-09-30 19:25] VITALS: BP 160/67; PULSE 63; RESP 18
[2018-10-01 02:20] VITALS: BP 157/67; PULSE 69; RESP 18
--- NOTE | 2018-10-01 04:54 | PN ---
Date/Time of Note Date/Time of Note DATE: 10/01/18 TIME: 04:53 Assessment/Plan VTE Prophylaxis Risk score (from Nsg)>0 risk: 3 SCD applied (from Nsg): Yes Lines/Catheters IV Catheter Type (from Nrsg): Peripheral IV Urinary Cath still in place: No Assessment/Plan Assessment/Plan 1. Dysphagia and odynophagia. The patient will be started on clear liquid diet. We will start her on Protonix to 40 mg twice a day. We will give gentle IV hydration due to slightly elevated creatinine. We will hold off on her Lipitor because of elevated liver enzymes. 2. Possible coronary artery disease. Continue Ranexa, Coreg. 3. Hypothyroidism secondary to thyroidectomy. Continue previous dose of Synthroid and we will obtain TSH and T4. 4. wojciech -nephro consult 5.chronically elevated lipasHer home medications had Creon 2 capsules t.i.d. with meals; however, details are not available. 6. For deep venous thrombosis prophylaxis, we will start Lovenox. Result Diagram: 09/30/18 0449 09/30/18 0449 Subjective 24 Hr Interval Summary Free Text/Dictation For EGD on Tue Exam/Review of Systems Exam Vitals Vital Signs Date Temp Pulse Resp B/P (MAP) Pulse Ox O2 O2 Flow FiO2 Time Delivery Rate 10/01/18 97.4 69 18 157/67 94 Room Air 02:20 (97) 09/29/18 2 13:59 Intake and Output 09/30/18 09/30/18 10/01/18 1515:00 23:00 07:00 IntakeIntake Total 1300 ml 750 ml BalanceBalance 1300 ml 750 ml Medications Medication Current Medications Dextrose/Sodium Chloride 1,000 ml @ 50 mls/hr Q20H IV Last administered on 09/30/18at 12:10; Admin Dose 50 MLS/HR; Start 09/29/18 at 18:00 Acetaminophen (Tylenol Tab) 650 mg Q4H PRN PO MILD PAIN(1-3)OR ELEVATED TEMP; Start 09/29/18 at 18:00 Levothyroxine Sodium (Synthroid) 100 mcg DAILY@06 PO Last administered on 09/30/18at 05:10; Admin Dose 100 MCG; Start 09/30/18 at 06:00 Diclofenac Sodium (Voltaren 1% Gel) 2 gm QID PRN TP PAIN; Start 09/29/18 at 18:00 Carvedilol (Coreg) 6.25 mg BID PO Last administered on 09/30/18 20:34; Admin Dose 6.25 MG; Start 09/29/18 at 21:00 Ranolazine (Ranexa) 500 mg Q12 PO Last administered on 09/30/18 20:32; Admin Dose 500 MG; Start 09/29/18 at 21:00 Amylase/Lipase/ Protease (CREON ([id number])) 2 cap WITH MEALS PO Last adm inistered on 09/30/18 18:02; Admin Dose 2 CAP; Start 09/29/18 at 19:30 Ergocalciferol (Drisdol) 50,000 unit Q7D PO Last administered on 09/29/18 18:43; Admin Dose 50,000 UNIT; Start 09/29/18 at 18:00 Enoxaparin Sodium (Lovenox) 30 mg DAILY SC Last administered on 09/30/18 09:04; Admin Dose 30 MG; Start 09/29/18 at 21:00 Pantoprazole (Protonix Tab) 40 mg BID@0600,1800 PO Last administered on 09/30/18 18:24; Admin Dose 40 MG; Start 09/30/18 at 06:00 ELIA COOK October 01, 2018 04:54
[2018-10-01] MEDS: LEVOTHYROXINE 100 MCG TAB PO SCH (05:53)
[2018-10-01] MEDS: PANTOPRAZOLE (EC) 40 MG TAB PO SCH ×2 (05:54→18:00)
[2018-10-01] MEDS ORDERED: PHENOL 1.4% SOLN 180 ML BTL MT PRN (06:30)
--- NOTE | 2018-10-01 08:04 | CONS ---
Assessment/Plan Assessment/Plan Assessment/Plan (Daily) 1. acute Kidney injury due to Prerenal azotemid due to decreased PO intake 2. Dyphagia 3. H/o CAD 4. H/O HTN 5. H/o Thyroidecotmy, now Hypothyroidsm Plan: BUN/Cr improved to 11/1.21, other electrolytes stable IVF D51/2 NS at 50 cc/hr Coreg 6/25 mg BID Levothyroxien for hypothyroidism will follow up Consultation Date/Type/Reason Admit Date/Time September 29, 2018 at 14:33 Initial Consult Date Type of Consult NEPHROLOGY Requesting Provider: VANNESSA RECINOS MD Date/Time of Note DATE: 10/01/18 TIME: 08:04 Exam/Review of Systems Exam Vitals Vital Signs Date Temp Pulse Resp B/P (MAP) Pulse Ox O2 O2 Flow FiO2 Time Delivery Rate 10/01/18 97.4 69 18 157/67 94 Room Air 02:20 (97) 09/29/18 2 13:59 Intake and Output 09/30/18 09/30/18 10/01/18 1515:00 23:00 07:00 IntakeIntake Total 1300 ml 750 ml 550 ml BalanceBalance 1300 ml 750 ml 550 ml Exam Constitutional: alert Respiratory: decreased BS at bases, no wheezing/Crackles Cardiovascular: regular rate and rhythm, nl pulses Gastrointestinal: soft, non-tender Musculoskeletal: nl extremities to inspection, muscle weakness, swelling Extremities: normal pulses Neurological: REGISTERED NURSE BONE MARROW TRANSPLANT II-XII intact, nl mental status, nl speech Results Result Diagram: 10/01/18 0432 10/01/18 0432 Results 24hrs Laboratory Tests Test 10/01/18 04:32 White Blood Count 2.2 #L Red Blood Count 3.69 L Hemoglobin 10.7 L Hematocrit 33.1 L Mean Corpuscular Volume 89.7 Mean Corpuscular Hemoglobin 29.0 Mean Corpuscular Hemoglobin Concent 32.3 Red Cell Distribution Width 11.7 Platelet Count 108 L Mean Platelet Volume 10.1 Immature Granulocytes % 0.500 H Neutrophils % 58.9 Lymphocytes % 19.4 Monocytes % 14.7 H Eosinophils % 6.0 Basophils % 0.5 Nucleated Red Blood Cells % 0.0 Immature Granulocytes # 0.010 Neutrophils # 1.3 L Lymphocytes # 0.4 L Monocytes # 0.3 Eosinophils # 0.1 Basophils # 0.0 Nucleated Red Blood Cells # 0.0 Sodium Level 142 Potassium Level 4.2 Chloride Level 108 Carbon Dioxide Level 31 Anion Gap 3 L Blood Urea Nitrogen 11 Creatinine 1.21 H Est Glomerular Filtrat Rate mL/min Glucose Level 95 Calcium Level 8.0 L Medications Medication Current Medications Dextrose/Sodium Chloride 1,000 ml @ 50 mls/hr Q20H IV Last administered on 09/30/18 12:10; Admin Dose 50 MLS/HR; Start 09/29/18 at 18:00 Acetaminophen (Tylenol Tab) 650 mg Q4H PRN PO MILD PAIN(1-3)OR ELEVATED TEMP; Start 09/29/18 at 18:00 Levothyroxine Sodium (Synthroid) 100 mcg DAILY@06 PO Last administered on 10/01/18 05:53; Admin Dose 100 MCG; Start 09/30/18 at 06:00 Diclofenac Sodium (Voltaren 1% Gel) 2 gm QID PRN TP PAIN; Start 09/29/18 at 18:00 Carvedilol (Coreg) 6.25 mg BID PO Last administered on 09/30/18 20:34; Admin Dose 6.25 MG; Start 09/29/18 at 21:00 Ranolazine (Ranexa) 500 mg Q12 PO Last administered on 09/30/18 20:32; Admin Dose 500 MG; Start 09/29/18 at 21:00 Amylase/Lipase/ Protease (CREON ([id number])) 2 cap WITH MEALS PO Last administered on 09/30/18 18:02; Admin Dose 2 CAP; Start 09/29/18 at 19:30 Ergocalciferol (Drisdol) 50,000 unit Q7D PO Last administered on 09/29/18 18:43; Admin Dose 50,000 UNIT; Start 09/29/18 at 18:00 Enoxaparin Sodium (Lovenox) 30 mg DAILY SC Last administered on 09/30/18 09:04; Admin Dose 30 MG; Start 09/29/18 at 21:00 Pantoprazole (Protonix Tab) 40 mg BID@0600,1800 PO Last administered on 10/01/18 05:54; Admin Dose 40 MG; Start 09/30/18 at 06:00 Phenol (Chloraseptic Throat [place]) 2 spray Q2H PRN [place] SORE THROAT; Start 10/01/18 at 06:30 MEGHAN BERNARD MD October 01, 2018 08:04
[2018-10-01 08:07] VITALS: BP 168/72; PULSE 63; RESP 19
[2018-10-01] MEDS: DEXTROSE 5%-0.45% NACL 1,000 ML IV SCH (08:32)
[2018-10-01] MEDS: RANOLAZINE (SR) 500 MG TAB PO SCH ×2 (08:33→21:46)
[2018-10-01] MEDS: CREON (12k-38k-60k) 1 CAP PO SCH ×3 (08:33→18:00)
[2018-10-01] MEDS: ENOXAPARIN 30 MG/0.3 ML SYG SC SCH (08:36)
[2018-10-01] MEDS ORDERED: BISACODYL 10 MG SUPP PR PRN (17:00)
[2018-10-01 19:25] VITALS: BP 162/74; PULSE 67; RESP 18
[2018-10-01] MEDS: SENNA TAB PO SCH (21:46)
--- NOTE | 2018-10-01 21:59 | CONS ---
DATE OF ADMISSION: 09/29/2018 DATE OF CONSULTATION: My consult was dictated yesterday, still it is not on the computer. SUBJECTIVE: Dysphagia and odynophagia. OBJECTIVE: VITALS: Stable. ABDOMEN: Benign. LUNGS: Clear. EXTREMITIES: No edema. CENTRAL NERVOUS SYSTEM: Grossly within normal limits. IMPRESSION: 1. Dysphagia, odynophagia. 2. Weight loss. 3. Hypothyroidism. 4. Possible coronary artery disease. PLAN: Proceed with EGD tomorrow. Discussed with the daughter and the sister is law and everybody wa s in agreement. Dictated By: GRACIELA TORIBIO MD PJ/NTS Conf#: [id number] DID#: [id number] CC: VANNESSA RECINOS MD;*EndCC*
[2018-10-02] VITALS (26 sets, daily range): BP systolic 137–181; BP diastolic 2–100; PULSE 60–78; RESP 14–23
[2018-10-02] MEDS: PANTOPRAZOLE (EC) 40 MG TAB PO SCH ×2 (05:36→18:00)
[2018-10-02] MEDS: DEXTROSE 5%-0.45% NACL 1,000 ML IV SCH (05:36)
[2018-10-02] MEDS: LEVOTHYROXINE 100 MCG TAB PO SCH (05:37)
--- NOTE | 2018-10-02 07:36 | CONS ---
DATE OF ADMISSION: 09/29/2018 DATE OF CONSULTATION: HISTORY OF PRESENT ILLNESS: The patient is an 78-year-old female with a history of GERD, admitted to the hospital for progressive dysphagia. As per the daughter, she has been suffering from dysphagia for the last 3 months, but for the last 1 week it has worsened and also it is painful. She has lost significant weight. No chest pain, no shortness of breath, no GI bleeding, no or FIELD ATTENDANT problem, no fever, no chills. REVIEW OF SYSTEMS: Otherwise negative. EMERGENCY ROOM COURSE: The patient was evaluated in the ER, was found to have a pancytopenia so was admitted. PAST MEDICAL HISTORY: As described. History of coronary artery disease, hypertension, left thyroide ctomy, mild memory impairment, history of GERD. ALLERGIES: UNKNOWN. FAMILY HISTORY: Negative. PHYSICAL EXAMINATION: GENERAL: Looks good for her age. Alert, awake, not in distress. VITAL SIGNS: Stable. HEENT: Unremarkable. NECK: Supple. No thyromegaly, no lymphadenopathy. CARDIOVASCULAR: No murmur, gallop or click. LUNGS: Clear. ABDOMEN: Benign. EXTREMITIES: No edema. CENTRAL NERVOUS SYSTEM: Grossly within normal limits. ____: 1. Dysphagia, progressive in nature with weight loss, rule out fungal infection, rule out malignancy , rule out stricture. 2. Coronary artery disease. 3. Hypothyroidism. 4. Weight loss. 5. Pancytopenia with platelet count of 108 and WBC is 2.9, and also abnormal liver function test. The patient had a CAT scan of the abdomen and pelvis done. There was no acute intraabdominal inflamm atory process. She had some surgical changes in the right lung. IMPRESSION: 1. Dysphagia, odynophagia, which is progressive. 2. Weight loss. 3. Hypertension. 4. Hypothyroidism. 5. Possible coronary artery disease. 6. Pancytopenia. PLAN: Plan is to continue present care and we will proceed with EGD. Discussed with the daughter an [id number], and they were in agreement for the procedure. Dictated By: GRACIELA FOWLER/NTS Conf#: [id number] DID#: [id number] CC: VANNESSA RECINOS MD;*EndCC*
[2018-10-02] MEDS: CREON (12k-38k-60k) 1 CAP PO SCH ×3 (07:50→17:51)
[2018-10-02] MEDS: ENOXAPARIN 30 MG/0.3 ML SYG SC SCH (09:00)
[2018-10-02] MEDS: SENNA TAB PO SCH ×2 (09:00→22:05)
[2018-10-02] MEDS: RANOLAZINE (SR) 500 MG TAB PO SCH ×2 (09:56→22:05)
--- NOTE | 2018-10-02 10:04 | CONS ---
Assessment/Plan Assessment/Plan Assessment/Plan (Daily) 1. acute Kidney injury due to Prerenal azotemid due to decreased PO intake 2. Dyphagia 3. H/o CAD 4. H/O HTN 5. H/o Thyroidecotmy, now Hypothyroidsm Plan: BUN/Cr improved to 10/1.24, other electrolytes stable IVF D51/2 NS at 50 cc/hr Coreg 6/25 mg BID Levothyroxien for hypothyroidism plan for EGD today will follow up Consultation Date/Type/Reason Admit Date/Time September 29, 2018 at 14:33 Initial Consult Date Type of Consult NEPHROLOGY Requesting Provider: VANNESSA RECINOS MD Date/Time of Note DATE: 10/02/18 TIME: 10:04 24 HR Interval Summary Free Text/Dictation plan for EGD today , BP stable Exam/Review of Systems Exam Vitals Vital Signs Date Temp Pulse Resp B/P (MAP) Pulse Ox O2 O2 Flow FiO2 Time Delivery Rate 10/02/18 98.3 66 18 158/72 96 07:45 (100) 10/02/18 Room Air 01:50 09/29/18 2 13:59 Intake and Output 10/01/18 10/01/18 10/02/18 1515:00 23:00 07:00 IntakeIntake Total 150 ml 1200 ml 790 ml BalanceBalance 150 ml 1200 ml 790 ml Exam Constitutional: alert Respiratory: normal air movement, congested cough, diminished breath sounds Cardiovascular: regular rate and rhythm, nl pulses Gastrointestinal: soft, non-tender Musculoskeletal: nl extremities to inspection, muscle weakness, swelling Extremities: normal pulses Neurological: INVASIVE PHYSICIAN II-XII intact, nl mental status, nl speech Results Result Diagram: 10/02/18 0432 10/02/18 0432 Results 24hrs Laboratory Tests Test 10/02/18 04:32 White Blood Count 2.2 L Red Blood Count 3.68 L Hemoglobin 10.7 L Hematocrit 32.2 L Mean Corpuscular Volume 87.5 Mean Corpuscular Hemoglobin 29.1 Mean Corpuscular Hemoglobin Concent 33.2 Red Cell Distribution Width 11.8 Platelet Count 101 L Mean Platelet Volume 9.9 Immature Granulocytes % 0.000 L Neutrophils % 57.9 Lymphocytes % 25.0 Monocytes % 12.0 H Eosinophils % 4.6 Basophils % 0.5 Nucleated Red Blood Cells % 0.0 Immature Granulocytes # 0.000 Neutrophils # 1.3 L Lymphocytes # 0.5 L Monocytes # 0.3 Eosinophils # 0.1 Basophils # 0.0 Nucleated Red Blood Cells # 0.0 Sodium Level 142 Potassium Level 4.1 Chloride Level 109 Carbon Dioxide Level 29 Anion Gap 4 L Blood Urea Nitrogen 10 Creatinine 1.24 H Est Glomerular Filtrat Rate mL/min Glucose Level 93 Calcium Level 8.0 L Medications Medication Current Medications Dextrose/Sodium Chloride 1,000 ml @ 50 mls/hr Q20H IV Last administered on 10/02/18 05:36; Admin Dose 50 MLS/HR; Start 09/29/18 at 18:00 Acetaminophen (Tylenol Tab) 650 mg Q4H PRN PO MILD PAIN(1-3)OR ELEVATED TEMP; Start 09/29/18 at 18:00 Levothyroxine Sodium (Synthroid) 100 mcg DAILY@06 PO Last administered on 10/01/18 05:53; Admin Dose 100 MCG; Start 09/30/18 at 06:00 Diclofenac Sodium (Voltaren 1% Gel) 2 gm QID PRN TP PAIN; Start 09/29/18 at 18:00 Carvedilol (Coreg) 6.25 mg BID PO Last administered on 10/02/18 09:56; Admin Dose 6.25 MG; Start 09/29/18 at 21:00 Ranolazine (Ranexa) 500 mg Q12 PO Last administered on 10/02/18 09:56; Admin Dose 500 MG; Start 09/29/18 at 21:00 Amylase/Lipase/ Protease (CREON ([id number])) 2 cap WITH MEALS PO Last administered on 10/01/18 18:00; Admin Dose 2 CAP; Start 09/29/18 at 19:30 Ergocalciferol (Drisdol) 50,000 unit Q7D PO Last administered on 09/29/18 18:43; Admin Dose 50,000 UNIT; Start 09/29/18 at 18:00 Enoxaparin Sodium (Lovenox) 30 mg DAILY SC Last administered on 10/01/18 08:36; Admin Dose 30 MG; Start 09/29/18 at 21:00 Pantoprazole (Protonix Tab) 40 mg BID@0600,1800 PO Last administered on 5/12 /19at 18:00; Admin Dose 40 MG; Start 09/30/18 at 06:00 Phenol (Chloraseptic Throat [place]) 2 spray Q2H PRN [place] SORE THROAT Last administered on 10/01/18at 08:32; Admin Dose 2 SPRAY; Start 10/01/18 at 06:30 Senna (Senokot) 1 tab BID PO Last administered on 10/01/18at 21:46; Admin Dose 1 TAB; Start 10/01/18 at 21:00 Bisacodyl (Dulcolax Supp) 10 mg DAILY PRN [place]; Start 10/01/18 at 17:00 MEGHAN BERNARD MD October 02, 2018 10:04
--- NOTE | 2018-10-02 15:19 | PN ---
Date/Time of Note Date/Time of Note DATE: 10/02/18 TIME: 15:10 Assessment/Plan VTE Prophylaxis Risk score (from Ns)>0 risk: 4 SCD applied (from Ns): Yes Pharmacological prophylaxis: NA/contraindicated Pharm contraindication: surgical contra Lines/Catheters IV C[facility]ter Type (from [facility]): Peripheral IV Urinary Cath still in place: No Assessment/Plan Hospital Course Pt complains of difficulty swallowing and 10 lbs weight loss, pending EGD today. UTI per UA, will obtain urine cx, start Rocephin. Assessment/Plan -Progressive dysphagia and odynophagia, pending EGD. Dr. Junior is following in gastroenterology consultation. -Elevated liver enzymes -UTI per UA -Hypertension. -Hypothyroidism. -Pancytopenia Further recommendations based on clinical course. Plan of care discussed with Dr. Garcia. Result Diagram: 10/02/1843110/02/18431 Results 24hrs Laboratory Tests Test 10/02/18 04:32 White Blood Count 2.2 L Red Blood Count 3.68 L Hemoglobin 10.7 L Hematocrit 32.2 L Mean Corpuscular Volume 87.5 Mean Corpuscular Hemoglobin 29.1 Mean Corpuscular Hemoglobin Concent 33.2 Red Cell Distribution Width 11.8 Platelet Count 101 L Mean Platelet Volume 9.9 Immature Granulocytes % 0.000 L Neutrophils % 57.9 Lymphocytes % 25.0 Monocytes % 12.0 H Eosinophils % 4.6 Basophils % 0.5 Nucleated Red Blood Cells % 0.0 Immature Granulocytes # 0.000 Neutrophils # 1.3 L Lymphocytes # 0.5 L Monocytes # 0.3 Eosinophils # 0.1 Basophils # 0.0 Nucleated Red Blood Cells # 0.0 Sodium Level 142 Potassium Level 4.1 Chloride Level 109 Carbon Dioxide Level 29 Anion Gap 4 L Blood Urea Nitrogen 10 Creatinine 1.24 H Est Glomerular Filtrat Rate mL/min Glucose Level 93 Calcium Level 8.0 L Exam/Review of Systems Exam Vitals Vital Signs Date Temp Pulse Resp B/P (MAP) Pulse Ox O2 O2 Flow FiO2 Time Delivery Rate 10/02/18 98.0 61 18 163/72 95 13:48 (102) 10/02/18 Room Air 01:50 09/29/18 2 13:59 Intake and Output 10/01/18 10/01/18 10/02/18 1515:00 23:00 07:00 IntakeIntake Total 150 ml 1200 ml 790 ml BalanceBalance 150 ml 1200 ml 790 ml Constitutional: alert, oriented Respiratory: clear to auscultation Cardiovascular: nl pulses Gastrointestinal: soft, non-tender Neurological: nl mental status Skin: nl turgor Results Results 24hrs Laboratory Tests Test 10/02/18 04:32 White Blood Count 2.2 L Red Blood Count 3.68 L Hemoglobin 10.7 L Hematocrit 32.2 L Mean Corpuscular Volume 87.5 Mean Corpuscular Hemoglobin 29.1 Mean Corpuscular Hemoglobin Concent 33.2 Red Cell Distribution Width 11.8 Platelet Count 101 L Mean Platelet Volume 9.9 Immature Granulocytes % 0.000 L Neutrophils % 57.9 Lymphocytes % 25.0 Monocytes % 12.0 H Eosinophils % 4.6 Basophils % 0.5 Nucleated Red Blood Cells % 0.0 Immature Granulocytes # 0.000 Neutrophils # 1.3 L Lymphocytes # 0.5 L Monocytes # 0.3 Eosinophils # 0.1 Basophils # 0.0 Nucleated Red Blood Cells # 0.0 Sodium Level 142 Potassium Level 4.1 Chloride Level 109 Carbon Dioxide Level 29 Anion Gap 4 L Blood Urea Nitrogen 10 Creatinine 1.24 H Est Glomerular Filtrat Rate mL/min Glucose Level 93 Calcium Level 8.0 L Medications Medication Current Medications Dextrose/Sodium Chloride 1,000 ml @ 50 mls/hr Q20H IV Last administered on 10/02/18at 05:36; Admin Dose 50 MLS/HR; Start 09/29/18 at 18:00 Acetaminophen (Tylenol Tab) 650 mg Q4H PRN PO MILD PAIN(1-3)OR ELEVATED TEMP; Start 09/29/18 at 18:00 Levothyroxine Sodium (Synthroid) 100 mcg DAILY@06 PO Last administered on 10/01/18at 05:53; Admin Dose 100 MCG; Start 09/30/18 at 06:00 Diclofenac Sodium (Voltaren 1% Gel) 2 gm QID PRN TP PAIN; Start 09/29/18 at 18:00 Carvedilol (Coreg) 6.25 mg BID PO Last administered on 10/02/18at 09:56; Admin Dose 6.25 MG; Start 09/29/18 at 21:00 Ranolazine (Ranexa) 500 mg Q12 PO Last administered on 10/02/18 09:56; Admin Dose 500 MG; Start 09/29/18 at 21:00 Amylase/Lipase/ Protease (CREON (59v-[id number])) 2 cap WITH MEALS PO Last administered on 10/01/18 18:00; Admin Dose 2 CAP; Start 09/29/18 at 19:30 Ergocalciferol (Drisdol) 50,000 unit Q7D PO Last administered on 09/29/18 18:43; Admin Dose 50,000 UNIT; Start 09/29/18 at 18:00 Enoxaparin Sodium (Lovenox) 30 mg DAILY SC Last administered on 10/01/18 08:36; Admin Dose 30 MG; Start 09/29/18 at 21:00 Pantoprazole (Protonix Tab) 40 mg BID@0600,1800 PO Last administered on 10/01/18 18:00; Admin Dose 40 MG; Start 09/30/18 at 06:00 Phenol (Chloraseptic Throat [place]) 2 spray Q2H PRN [place] SORE THROAT Last administered on 10/01/18 08:32; Admin Dose 2 SPRAY; Start 10/01/18 at 06:30 Senna (Senokot) 1 tab BID PO Last administered on 10/01/18 21:46; Admin Dose 1 TAB; Start 10/01/18 at 21:00 Bisacodyl (Dulcolax Supp) 10 mg DAILY PRN [place] CONSTIPATION; Start 10/01/18 at 17:00 ANDREE CASTILLO October 02, 2018 15:19
--- NOTE | 2018-10-02 20:16 | PREAC ---
Date/Time of Note Date/Time of Note DATE: 10/02/18 TIME: 20:12 Anesthesia Eval and Record Evaluation Time Pre-Procedure Interview DATE: 10/02/18 TIME: 20:12 Age 78 Sex female NPO: 8 hrs Preoperative diagnosis Gastric Pain Planned procedure EGD Past Medical History Past Medical History: None Cardio: HTN, Dyslipidemia Endo: Hypothyroid Surgery & Anesthesia Issues No known issue Meds Anticoagulation: No Beta Matt within 24 hr: No Reason Beta Matt not given: Pt. not on B-Matt Reported Medications Ergocalciferol (Vitamin D2) (VITAMIN D2) 50,000 Unit Capsule, 45046 UNIT PO Q7D, CAP 09/29/18 Omeprazole* (Omeprazole*) 40 Mg Capsule., 40 MG PO DAILY, #30 CAP 09/29/18 Njyuds-Ottjusav-Fazsuxm* (Alexandr RAMÍREZ* 36,000) 36,000 L-114,000-180,000 Unit Capsule.dr, 2 CAP PO WITH MEALS, CAP 09/29/18 Ranolazine* (Ranexa*) 500 Mg Tab.sr.12h, 500 MG PO Q12, TAB 09/29/18 Atorvastatin Calcium (Atorvastatin Calcium) 10 Mg Tablet, 10 MG PO QHS, #30 TAB 09/29/18 Carvedilol* (Carvedilol*) 6.25 Mg Tablet, 6.25 MG PO BID, #60 TAB 09/29/18 Diclofenac Sodium* (Voltaren* Gel) 1% -100 Gm Gel, 2 GM TOP NEEDED, #1 TUB 09/29/18 Levothyroxine Sodium* (Levothyroxine Sodium*) 100 Mcg Tablet, 100 MCG PO BEFORE BREAKFAST, #30 TAB 09/29/18 Discontinued Reported Medications Losartan-Hydrochlorothiazide (Losartan-HCTZ) 100-12.5 Mg Tab, 1 TAB PO DAILY, TAB 03/01/18 Atorvastatin Calcium (Atorvastatin Calcium) 10 Mg Tablet, 10 MG PO QHS, #30 TAB 03/01/18 Levothyroxine Sodium* (Levoxyl*) 100 Mcg Tablet, 100 MCG PO BEFORE BREAKFAST, #30 TAB 03/01/18 Ranolazine* (Ranexa*) 500 Mg Tab.sr.12h, 500 MG PO Q12, TAB 03/01/18 Ergocalciferol (Vitamin D2) (VITAMIN D2) 50,000 Unit Capsule, 93128 UNIT PO EVERY TUESDAY, CAP 03/01/18 Aspirin (Low Dose Aspirin) 81 Mg Tablet.dr, 81 MG PO DAILY, #30 TAB 03/01/18 Carvedilol* (Coreg*) 6.25 Mg Tablet, 6.25 MG PO BID, #60 TAB 03/01/18 Discontinued Scripts Cephalexin* (Cephalexin*) 500 Mg Capsule, 500 MG PO BID for 10 Days, CAP Prov:CHRIS CHINCHILLA MD 03/22/18 Ketorolac Tromethamine Oph (Ketorolac Tromethamine Oph) 0.4%-5 Ml Opht Drops, 1 DROP LEFT EYE QID for pain, #1 EA Prov:CHRIS CHINCHILLA MD 03/22/18 Prednisolone Acetate* (Pred Forte*) 5 Ml Susp, 1 DROP LEFT EYE QID, #1 EA Prov:CHRIS CHINCHILLA MD 03/22/18 Tobramycin-Dexamethasone* (Tobradex* Ophth) 0.3%-0.1% - 2.5 Ml Soln, 1 DROP LEFT EYE q1hr for 1 Day, EA Prov:CHRIS CHINCHILLA MD 03/22/18 Brimonidine Tartrate* (Brimonidine Tartrate*) 0.15%-10ML Drop Opht, 1 DROP LEFT EYE Q8 for pain, #1 EA Prov:CHRIS CHINCHILLA MD 03/22/18 Erythromycin Base (Erythromycin) 1 Gm Oint...g., 1 APPLIC LEFT EYE QHS for 10 Days Prov:CHRIS CHINCHILLA MD 03/22/18 Current Medications Acetaminophen (Tylenol Tab) 650 mg Q4H PRN PO MILD PAIN(1-3)OR ELEVATED TEMP; Start 09/29/18 at 18:00 Levothyroxine Sodium (Synthroid) 100 mcg DAILY@06 PO Last administered on 10/01/18at 05:53; Admin Dose 100 MCG; Start 09/30/18 at 06:00 Diclofenac Sodium (Voltaren 1% Gel) 2 gm QID PRN TP PAIN; Start 09/29/18 at 18:00 Carvedilol (Coreg) 6.25 mg BID PO Last administered on 10/02/18at 09:56; Admin Dose 6.25 MG; Start 09/29/18 at 21:00 Ranolazine (Ranexa) 500 mg Q12 PO Last administered on 10/02/18 09:56; Admin Dose 500 MG; Start 09/29/18 at 21:00 Amylase/Lipase/ Protease (CREON (12k-38k-60k)) 2 cap WITH MEALS PO Last administered on 10/01/18 18:00; Admin Dose 2 CAP; Start 09/29/18 at 19:30 Ergocalciferol (Drisdol) 50,000 unit Q7D PO Last administered on 09/29/18 18:43; Admin Dose 50,000 UNIT; Start 09/29/18 at 18:00 Enoxaparin Sodium (Lovenox) 30 mg DAILY SC Last administered on 10/01/18 08:36; Admin Dose 30 MG; Start 09/29/18 at 21:00 Pantoprazole (Protonix Tab) 40 mg BID@0600,1800 PO Last administered on 10/01/18 18:00; Admin Dose 40 MG; Start 09/30/18 at 06:00 Phenol (Chloraseptic Throat [place]) 2 spray Q2H PRN [place] SORE THROAT Last administered on 10/01/18 08:32; Admin Dose 2 SPRAY; Start 10/01/18 at 06:30 Senna (Senokot) 1 tab BID PO Last administered on 10/01/18 21:46; Admin Dose 1 TAB; Start 10/01/18 at 21:00 Bisacodyl (Dulcolax Supp) [address] CONSTIPATION; Start 10/01/18 at 17:00 Meds reviewed: Yes Allergies Coded Allergies: Penicillins (Unverified Allergy, Unknown, 09/29/18) Allergies Reviewed: Yes Labs/Studies Labs Reviewed: Reviewed by anesthesiologist Result Diagram: 10/02/18 0432 10/02/18 0432 Laboratory Tests 10/02/18 04:32 test: Negative Pre-procedure Exam Last vitals Vital Signs Date Temp Pulse Resp B/P (MAP) Pulse Ox O2 O2 Flow FiO2 Time Delivery Rate 10/02/18 97.9 62 20 180/91 97 Room Air 18:50 (120) 09/29/18 2 13:59 Airway: Adequate mouth opening Mallampati: Mallampati II Teeth: Normal Lung: Normal Heart: Normal ASA Physical Status ASA physical status: 3 Emergency: None Planned Anesthetic General/MAC: MAC Pre-operative Attestations Prior to commencing anesthesia and surgery, the patient was re-evaluated, there was verification of: *The patient's identity *The results of appropriate recent lab work and preoperative vital signs *The above evaluation not changing prior to induction *Anesthetic plan, risk benefits, alternative and complications discussed with patient/family; questions answered; patient/family understands, accepts and wishes to proceed. MELANIE HODGE MD October 02, 2018 20:16
[2018-10-02] MEDS ORDERED: PROPOFOL 20 ML ONE (20:17)
--- NOTE | 2018-10-02 20:38 | PAC ---
Date/Time of Note Date/Time of Note DATE: 10/02/18 TIME: 20:37 Post-Anesthesia Notes Post-Anesthesia Note Last documented vital signs Vital Signs Date Temp Pulse Resp B/P (MAP) Pulse Ox O2 O2 Flow FiO2 Time Delivery Rate 10/02/18 97.9 62 20 180/91 97 Room Air 18:50 (120) 09/29/18 2 13:59 Activity: WNL Respiratory function: WNL Cardiovascular function: WNL Mental status: Baseline Pain reasonably controlled: Yes Hydration appropriate: Yes Nausea/Vomiting absent: Yes MELANIE HODGE MD October 02, 2018 20:38
[2018-10-03] VITALS: BP 143/63; PULSE 66; RESP 18
[2018-10-03 01:00] VITALS: BP 133/61; PULSE 71; RESP 18
[2018-10-03 01:09] VITALS: BP 155/68; PULSE 70; RESP 18
[2018-10-03] MEDS: AZTREONAM 2 GM in SOD CHLORIDE 0.9% 100 ML IVPB SCH ×3 (01:44→21:36)
[2018-10-03] MEDS: PANTOPRAZOLE (EC) 40 MG TAB PO SCH ×2 (05:59→18:36)
[2018-10-03] MEDS: LEVOTHYROXINE 100 MCG TAB PO SCH (05:59)
--- NOTE | 2018-10-03 07:13 | CONS ---
Assessment/Plan Assessment/Plan Hospital Course (Demo Recall) 78 yo with dysphagia, s/p EGD 10/02 1. Acute gastritis 2. Dysphagia, odynophagia -no etiology found during EGD -may consider an appetite stimulant -TSH elevated could be due to an enlarged thyroid 3. Weight loss 4. Hypothyroidism 5. Possible CAD 6. LUQ abdominal pain -constipation vs pancreas -bowel regimen and lipase/amylase labs (pt is taking creon) Plan: Lipase/amylase Pending pathology Continue with ppi Pt examined and plan of care discussed with Dr. Junior Consultation Date/Type/Reason Admit Date/Time September 29, 2018 at 14:33 Initial Consult Date 09/29/18 Requesting Provider: VANNESSA RECINOS MD Date/Time of Note DATE: 10/03/18 TIME: 07:10 24 HR Interval Summary Free Text/Dictation Pt states she is no longer having pain or trouble swallowing. C/O intermittent LUQ pain which is alleviated when she holds it. It is not associated with deep breaths. It was intermittent but constant overnight. NO bm in two days. Exam/Review of Systems Exam Vitals Vital Signs Date Temp Pulse Resp B/P (MAP) Pulse Ox O2 O2 Flow FiO2 Time Delivery Rate 10/03/18 97.7 70 18 155/68 96 Room Air 01:09 (97) 10/02/18 15 20:28 Intake and Output 10/02/18 10/02/18 10/03/18 1515:00 23:00 07:00 IntakeIntake Total 500 ml 400 ml BalanceBalance 500 ml 400 ml Constitutional: alert, oriented Psych: no complaints Head: normocephalic Eyes: PERRL Respiratory: normal air movement Cardiovascular: regular rate and rhythm Gastrointestinal: soft, non-tender Musculoskeletal: nl gait and stance Neurological: nl mental status Results Result Diagram: 10/03/185 10/03/18 0445 Results 24hrs Laboratory Tests Test 10/03/18 04:45 White Blood Count 4.8 # Red Blood Count 4.02 L Hemoglobin 11.8 L Hematocrit 35.1 L Mean Corpuscular Volume 87.3 Mean Corpuscular Hemoglobin 29.4 Mean Corpuscular Hemoglobin Concent 33.6 Red Cell Distribution Width 11.8 Platelet Count 123 #L Mean Platelet Volume 9.9 Immature Granulocytes % 0.200 Neutrophils % 76.0 Lymphocytes % 14.3 L Monocytes % 8.3 Eosinophils % 1.2 Basophils % 0.0 Nucleated Red Blood Cells % 0.0 Immature Granulocytes # 0.010 Neutrophils # 3.7 Lymphocytes # 0.7 L Monocytes # 0.4 Eosinophils # 0.1 Basophils # 0.0 Nucleated Red Blood Cells # 0.0 Sodium Level 142 Potassium Level 4.1 Chloride Level 108 Carbon Dioxide Level 28 Anion Gap 6 Blood Urea Nitrogen 11 Creatinine 1.15 H Est Glomerular Filtrat Rate mL/min Glucose Level 86 Calcium Level 8.6 Total Bilirubin 0.6 Direct Bilirubin 0.00 Indirect Bilirubin 0.6 Aspartate Amino Transf (AST/SGOT) 75 H Alanine Aminotransferase (ALT/SGPT) 95 H Alkaline Phosphatase 96 Total Protein 6.4 Albumin 3.5 Globulin 2.90 Albumin/Globulin Ratio 1.20 Medications Medication Current Medications Acetaminophen (Tylenol Tab) 650 mg Q4H PRN PO MILD PAIN(1-3)OR ELEVATED TEMP; Start 09/29/18 at 18:00 Levothyroxine Sodium (Synthroid) 100 mcg DAILY@06 PO Last administered on 10/03/18 05:59; Admin Dose 100 MCG; Start 09/30/18 at 06:00 Diclofenac Sodium (Voltaren 1% Gel) 2 gm QID PRN TP PAIN; Start 09/29/18 at 18:00 Carvedilol (Coreg) 6.25 mg BID PO Last administered on 10/02/18 22:06; Admin Dose 6.25 MG; Start 09/29/18 at 21:00 Ranolazine (Ranexa) 500 mg Q12 PO Last administered on 10/02/18 22:05; Admin Dose 500 MG; Start 09/29/18 at 21:00 Amylase/Lipase/ Protease (CREON (12i-67k-60k)) 2 cap WITH MEALS PO Last administered on 10/01/18 18:00; Admin Dose 2 CAP; Start 09/29/18 at 19:30 Ergocalciferol (Drisdol) 50,000 unit Q7D PO Last administered on 09/29/18 18:43; Admin Dose 50,000 UNIT; Start 09/29/18 at 18:00 Enoxaparin Sodium (Lovenox) 30 mg DAILY SC Last administered on 10/01/18 08:36; Admin Dose 30 MG; Start 09/29/18 at 21:00 Pantoprazole (Protonix Tab) 40 mg BID@0600,1800 PO Last administered on 10/03/18at 05:59; Admin Dose 40 MG; Start 09/30/18 at 06:00 Phenol (Chloraseptic Throat [place]) 2 spray Q2H PRN [place] SORE THROAT Last administered on 10/01/18at 08:32; Admin Dose 2 SPRAY; Start 10/01/18 at 06:30 Senna (Senokot) 1 tab BID PO Last administered on 10/02/18at 22:05; Admin Dose 1 TAB; Start 10/01/18 at 21:00 Bisacodyl (Dulcolax Supp) 10 mg DAILY PRN [place] CONSTIPATION; Start 10/01/18 at 17:00 Aztreonam 2 gm/ Sodium Chloride 100 ml @ 100 mls/hr Q12 IVPB Last administered on 10/03/18at 01:44; Admin Dose 100 MLS/HR; Start 10/03/18 at 00:00 LAWRENCE SUBRAMANIAN October 03, 2018 07:13
[2018-10-03] MEDS: CREON (12k-38k-60k) 1 CAP PO SCH ×3 (07:58→18:34)
[2018-10-03] MEDS: ACETAMINOPHEN 325 MG TAB PO PRN (07:58)
[2018-10-03] MEDS ORDERED: MAGNESIUM HYDROXIDE 30ML CUP PO ONE (08:00)
[2018-10-03 08:05] VITALS: BP 133/60; PULSE 81; RESP 18
[2018-10-03] MEDS: RANOLAZINE (SR) 500 MG TAB PO SCH ×2 (08:11→21:36)
[2018-10-03] MEDS: ENOXAPARIN 30 MG/0.3 ML SYG SC SCH (08:14)
[2018-10-03] MEDS: LUBIPROSTONE 24 MCG CAP PO SCH ×2 (11:14→21:36)
--- NOTE | 2018-10-03 13:57 | CONS ---
Assessment/Plan Assessment/Plan Assessment/Plan (Daily) 1. acute Kidney injury due to Prerenal azotemid due to decreased PO intake 2. Dyphagia 3. H/o CAD 4. H/O HTN 5. H/o Thyroidecotmy, now Hypothyroidsm Plan: BUN/Cr improved to 11/1.15, other electrolytes stable - IVF D51/2 NS at 50 cc/hr Coreg 6/25 mg BID Levothyroxien for hypothyroidism s/p EGD negative for acute findings will follow up Consultation Date/Type/Reason Admit Date/Time September 29, 2018 at 14:33 Initial Consult Date Type of Consult NEPHROLOGY Requesting Provider: VANNESSA RECINOS MD Date/Time of Note DATE: 10/03/18 TIME: 13:57 Exam/Review of Systems Exam Vitals Vital Signs Date Temp Pulse Resp B/P (MAP) Pulse Ox O2 O2 Flow FiO2 Time Delivery Rate 10/03/18 98.0 81 18 133/60 94 Room Air 08:05 (84) 10/02/18 15 20:28 Intake and Output 10/02/18 10/02/18 10/03/18 1515:00 23:00 07:00 IntakeIntake Total 500 ml 400 ml BalanceBalance 500 ml 400 ml Exam Constitutional: alert Respiratory: normal air movement, congested cough, diminished breath sounds Cardiovascular: regular rate and rhythm, nl pulses Gastrointestinal: soft, non-tender Musculoskeletal: nl extremities to inspection, muscle weakness, swelling Extremities: normal pulses Neurological: HA[employer] DESIGNER II-XII intact, nl mental status, nl speech Results Result Diagram: 10/03/18 0445 10/03/18 0445 Results 24hrs Laboratory Tests Test 10/03/18 04:32 10/03/18 04:45 Amylase Level 74 Lipase 253 Thyroid Stimulating Hormone (TSH) 13.800 H White Blood Count 4.8 # Red Blood Count 4.02 L Hemoglobin 11.8 L Hematocrit 35.1 L Mean Corpuscular Volume 87.3 Mean Corpuscular Hemoglobin 29.4 Mean Corpuscular Hemoglobin Concent 33.6 Red Cell Distribution Width 11.8 Platelet Count 123 #L Mean Platelet Volume 9.9 Immature Granulocytes % 0.200 Neutrophils % 76.0 Lymphocytes % 14.3 L Monocytes % 8.3 Eosinophils % 1.2 Basophils % 0.0 Nucleated Red Blood Cells % 0.0 Immature Granulocytes # 0.010 Neutrophils # 3.7 Lymphocytes # 0.7 L Monocytes # 0.4 Eosinophils # 0.1 Basophils # 0.0 Nucleated Red Blood Cells # 0.0 Sodium Level 142 Potassium Level 4.1 Chloride Level 108 Carbon Dioxide Level 28 Anion Gap 6 Blood Urea Nitrogen 11 Creatinine 1.15 H Est Glomerular Filtrat Rate mL/min Glucose Level 86 Calcium Level 8.6 Total Bilirubin 0.6 Direct Bilirubin 0.00 Indirect Bilirubin 0.6 Aspartate Amino Transf (AST/SGOT) 75 H Alanine Aminotransferase (ALT/SGPT) 95 H Alkaline Phosphatase 96 Total Protein 6.4 Albumin 3.5 Globulin 2.90 Albumin/Globulin Ratio 1.20 Medications Medication Current Medications Acetaminophen (Tylenol Tab) 650 mg Q4H PRN PO MILD PAIN(1-3)OR ELEVATED TEMP [place] st administered on 10/03/18 07:58; Admin Dose 650 MG; Start 09/29/18 at 18:00 Diclofenac Sodium (Voltaren 1% Gel) 2 gm QID PRN TP PAIN; Start 09/29/18 at 18:00 Carvedilol (Coreg) 6.25 mg BID PO Last administered on 10/03/18 08:12; Admin Dose 6.25 MG; Start 09/29/18 at 21:00 Ranolazine (Ranexa) 500 mg Q12 PO Last administered on 10/03/18 08:11; Admin Dose 500 MG; Start 09/29/18 at 21:00 Amylase/Lipase/ Protease (CREON (12k-38k-60k)) 2 cap WITH MEALS PO Last administered on 10/03/18 13:37; Admin Dose 2 CAP; Start 09/29/18 at 19:30 Ergocalciferol (Drisdol) 50,000 unit Q7D PO Last administered on 09/29/18 18:43; Admin Dose 50,000 UNIT; Start 09/29/18 at 18:00 Enoxaparin Sodium (Lovenox) 30 mg DAILY SC Last administered on 10/03/18 08:14; Admin Dose 30 MG; Start 09/29/18 at 21:00 Pantoprazole (Protonix Tab) 40 mg BID@0600,1800 PO Last administered on 10/03/18 05:59; Admin Dose 40 MG; Start 09/30/18 at 06:00 Phenol (Chloraseptic Throat [place]) 2 spray Q2H PRN [place] SORE THROAT Last administered on 10/01/18at 08:32; Admin Dose 2 SPRAY; Start 10/01/18 at 06:30 Bisacodyl (Dulcolax Supp) 10 mg DAILY PRN [place] CONSTIPATION; Start 10/01/18 at 17:00 Aztreonam 2 gm/ Sodium Chloride 100 ml @ 100 mls/hr Q12 IVPB Last administered on 10/03/18at 11:16; Admin Dose 100 MLS/HR; Start 10/03/18 at 00:00 Lubiprostone (Amitiza) 24 mcg BID PO Last administered on 10/03/18at 11:14; Admin Dose 24 MCG; Start 10/03/18 at 09:00 Levothyroxine Sodium (Synthroid) 125 mcg DAILY@06 PO ; Start 10/04/18 at 06:00 MEGHAN BERNARD MD October 03, 2018 13:57
--- NOTE | 2018-10-03 14:43 | PN ---
Date/Time of Note Date/Time of Note DATE: 10/03/18 TIME: 14:36 Assessment/Plan VTE Prophylaxis Risk score (from Ns)>0 risk: 4 SCD applied (from Nsg): Yes Pharmacological prophylaxis: LMWH Lines/Catheters IV Catheter Type (from Nrsg): Saline Lock Urinary Cath still in place: No Assessment/Plan Hospital Course Patient tolerates clear liquid diet well stated that swallowing is improved asking for regular food, will progress diet to mechanical soft. Patient is complaining of left lower quadrant pain, CT of the abdomen and pelvis noted, constipation, patient had bowel movement 2 days x 3, get on bowel regimen. Patient's condition and plan of care discussed with patient and patient's son at the bedside as well as RN. Assessment/Plan -Acute gastritis, continue PPI. -Progressive dysphagia and odynophagia, resolving, no etiology found during EGD. Patient tolerates clear liquid diet well, will progress to mechanical soft Dr. Junior is following in gastroenterology consultation. -Transaminitis, resolving. -Gram-negative rods UTI, continue aztreonam, follow-up on final culture. -Hypothyroidism, s/p thyroidectomy, continue levothyroxine -Hypertension. -Pancytopenia Further recommendations based on clinical course. Plan of care discussed with Dr. Garcia. Result Diagram: 10/03/185 10/03/18444 Results 24hrs Laboratory Tests Test 10/03/18 04:32 10/03/18 04:45 Amylase Level 74 Lipase 253 Thyroid Stimulating Hormone (TSH) 13.800 H White Blood Count 4.8 # Red Blood Count 4.02 L Hemoglobin 11.8 L Hematocrit 35.1 L Mean Corpuscular Volume 87.3 Mean Corpuscular Hemoglobin 29.4 Mean Corpuscular Hemoglobin Concent 33.6 Red Cell Distribution Width 11.8 Platelet Count 123 #L Mean Platelet Volume 9.9 Immature Granulocytes % 0.200 Neutrophils % 76.0 Lymphocytes % 14.3 L Monocytes % 8.3 Eosinophils % 1.2 Basophils % 0.0 Nucleated Red Blood Cells % 0.0 Immature Granulocytes # 0.010 Neutrophils # 3.7 Lymphocytes # 0.7 L Monocytes # 0.4 Eosinophils # 0.1 Basophils # 0.0 Nucleated Red Blood Cells # 0.0 Sodium Level 142 Potassium Level 4.1 Chloride Level 108 Carbon Dioxide Level 28 Anion Gap 6 Blood Urea Nitrogen 11 Creatinine 1.15 H Est Glomerular Filtrat Rate mL/min Glucose Level 86 Calcium Level 8.6 Total Bilirubin 0.6 Direct Bilirubin 0.00 Indirect Bilirubin 0.6 Aspartate Amino Transf (AST/SGOT) 75 H Alanine Aminotransferase (ALT/SGPT) 95 H Alkaline Phosphatase 96 Total Protein 6.4 Albumin 3.5 Globulin 2.90 Albumin/Globulin Ratio 1.20 Exam/Review of Systems Exam Vitals Vital Signs Date Temp Pulse Resp B/P (MAP) Pulse Ox O2 O2 Flow FiO2 Time Delivery Rate 10/03/18 98.0 81 18 133/60 94 Room Air 08:05 (84) 10/02/18 15 20:28 Intake and Output 10/02/18 10/02/18 10/03/18 1414:59 22:59 06:59 IntakeIntake Total 500 ml 400 ml BalanceBalance 500 ml 400 ml Exam Constitutional: alert, oriented Respiratory: clear to auscultation Cardiovascular: nl pulses Gastrointestinal: soft, non-tender Neurological: nl mental status Skin: nl turgor Results Results 24hrs Laboratory Tests Test 10/03/18 04:32 10/03/18 04:45 Amylase Level 74 Lipase 253 Thyroid Stimulating Hormone (TSH) 13.800 H White Blood Count 4.8 # Red Blood Count 4.02 L Hemoglobin 11.8 L Hematocrit 35.1 L Mean Corpuscular Volume 87.3 Mean Corpuscular Hemoglobin 29.4 Mean Corpuscular Hemoglobin Concent 33.6 Red Cell Distribution Width 11.8 Platelet Count 123 #L Mean Platelet Volume 9.9 Immature Granulocytes % 0.200 Neutrophils % 76.0 Lymphocytes % 14.3 L Monocytes % 8.3 Eosinophils % 1.2 Basophils % 0.0 Nucleated Red Blood Cells % 0.0 Immature Granulocytes # 0.010 Neutrophils # 3.7 Lymphocytes # 0.7 L Monocytes # 0.4 Eosinophils # 0.1 Basophils # 0.0 Nucleated Red Blood Cells # 0.0 Sodium Level 142 Potassium Level 4.1 Chloride Level 108 Carbon Dioxide Level 28 Anion Gap 6 Blood Urea Nitrogen 11 Creatinine 1.15 H Est Glomerular Filtrat Rate mL/min Glucose Level 86 Calcium Level 8.6 Total Bilirubin 0.6 Direct Bilirubin 0.00 Indirect Bilirubin 0.6 Aspartate Amino Transf (AST/SGOT) 75 H Alanine Aminotransferase (ALT/SGPT) 95 H Alkaline Phosphatase 96 Total Protein 6.4 Albumin 3.5 Globulin 2.90 Albumin/Globulin Ratio 1.20 Medications Medication Current Medications Acetaminophen (Tylenol Tab) 650 mg Q4H PRN PO MILD PAIN(1-3)OR ELEVATED TEMP Last administered on 10/03/18 07:58; Admin Dose 650 MG; Start 09/29/18 at 18:00 Diclofenac Sodium (Voltaren 1% Gel) 2 gm QID PRN TP PAIN; Start 09/29/18 at 18:00 Carvedilol (Coreg) 6.25 mg BID PO Last administered on 10/03/18 08:12; Admin Dose 6.25 MG; Start 09/29/18 at 21:00 Ranolazine (Ranexa) 500 mg Q12 PO Last administered on 10/03/18 08:11; Admin Dose 500 MG; Start 09/29/18 at 21:00 Amylase/Lipase/ Protease (CREON (12k-38k-60k)) 2 cap WITH MEALS PO Last administered on 10/03/18 13:37; Admin Dose 2 CAP; Start 09/29/18 at 19:30 Ergocalciferol (Drisdol) 50,000 unit Q7D PO Last administered on 09/29/18 18:43; Admin Dose 50,000 UNIT; Start 09/29/18 at 18:00 Enoxaparin Sodium (Lovenox) 30 mg DAILY SC Last administered on 10/03/18 08:14; Admin Dose 30 MG; Start 09/29/18 at 21:00 Pantoprazole (Protonix Tab) 40 mg BID@0600,1800 PO Last administered on 10/03/18 05:59; Admin Dose 40 MG; Start 09/30/18 at 06:00 Phenol (Chloraseptic Throat [place]) 2 spray Q2H PRN [place] SORE THROAT Last administered on 10/01/18 08:32; Admin Dose 2 SPRAY; Start 10/01/18 at 06:30 Bisacodyl (Dulcolax Supp) 10 mg DAILY PRN [place] CONSTIPATION; Start 10/01/18 at 17:00 Aztreonam 2 gm/ Sodium Chloride 100 ml @ 100 mls/hr Q12 IVPB Last administered on 10/03/18 11:16; Admin Dose 100 MLS/HR; Start 10/03/18 at 00:00 Lubiprostone (Amitiza) 24 mcg BID PO Last administered on 10/03/18at 11:14; Admin Dose 24 MCG; Start 10/03/18 at 09:00 Levothyroxine Sodium (Synthroid) 125 mcg DAILY@06 PO ; Start 10/04/18 at 06:00 ANDREE CASTILLO October 03, 2018 14:43
[2018-10-03 14:50] VITALS: BP 150/68; PULSE 70; RESP 18
--- NOTE | 2018-10-03 15:08 | CONS ---
DATE OF ADMISSION: 09/29/2018 DATE OF CONSULTATION: 10/03/2018 TYPE OF CONSULTATION: Infectious disease. REASON FOR CONSULTATION: Antibiotic management. HISTORY OF PRESENT ILLNESS: Taylor Diaz is an 78-year-old female who comes in with dysphagia and odynophagia. The patient is well known to Dr. Recinos. 1. She has chronic GERD for which she takes Prilosec. 2. Hypertension. 3. Coronary artery disease. 4. Hypothyroidism. 5. Status post total thyroidectomy. 6. Mild memory impairment. Acutely, the patient came in with difficulty in swallowing. She felt pain in the upper part of the c hest near her throat. She did not have any vomiting. No reported chronic anorexia. She had exertio nal chest pain. She was seen in the ER, her vital signs were stable. She was leukopenic with a whit e count of 3000, hemoglobin 12.2, platelet count 119, BUN and creatinine 18/1.14, glucose 103, alkali ne phosphatase 124, ALT 137, AST 98, lipase 319. PAST SURGICAL HISTORY: Status post left eye cataract repair at [facility], status post thyr oidectomy. ALLERGIES: POSSIBLY TO SOME ANTIBIOTICS BUT NO DETAILS AVAILABLE. FAMILY HISTORY: Noncontributory. PHYSICAL EXAMINATION: GENERAL: The patient is awake, responsive, in no acute distress. VITAL SIGNS: Stable. She is afebrile. SKIN: Without generalized rash. HEENT: Within normal limits. NECK: Supple. LYMPH NODES: None palpable. CHEST: Decreased breath sounds at the bases. HEART: Without murmur or gallop. ABDOMEN: Soft, nontender, without organosplenomegaly or masses. EXTREMITIES: Without cyanosis, clubbing, or edema. RECTAL AND GENITAL: Deferred. NEUROLOGIC: No focal neurological abnormalities. HOSPITAL COURSE: Urine culture was done which grew greater than 10 to the 5th gram-negative rods. U rine showed 3+ leukocyte esterase, greater than 182 white cells per high-power field. She had a CT s can of the abdomen and pelvis, no evidence for acute intra-abdominal pelvic inflammatory process. No evidence of bowel obstruction, atherosclerosis of the aorta. No gross renal or ureteral calculi, no evidence of free fluid or free air, right middle lobe of the lung has postsurgical changes. There w as a GI procedure. Patient was seen by Dr. Junior for dysphagia and weight loss, hypothyroidism. EG D with and without biopsy and washings were done. The patient is no longer having pain on swallowing . Complains of intermittent left upper quadrant pain, not associated with deep breaths. White count today is 4.8, H and H 11.8 and 35.1, platelet count 123,000. BUN and creatinine 11.15. The resul ts of the EGD are not available. IMPRESSION AND PLAN: The patient was started on Rocephin for urinary tract infection and changed to aztreonam because she purportedly IS ALLERGIC TO PENICILLIN. We will await the results of the EGD wh ich was done on the . I will dictate my findings to Dr. Recinos, Dr. Junior, and nurse practiti albert Mott. Dictated By: LISANDRO VYAS MD, JD/NTS Conf#: [id number] DID#: [id number] CC: VANNESSA RECINOS MD;*EndCC*
[2018-10-03 19:26] VITALS: BP 145/65; PULSE 71; RESP 18
[2018-10-04] VITALS (8 sets, daily range): BP systolic 139–180; BP diastolic 65–85; PULSE 62–70; RESP 14–18
[2018-10-04] MEDS: PANTOPRAZOLE (EC) 40 MG TAB PO SCH ×2 (05:59→18:04)
[2018-10-04] MEDS: LEVOTHYROXINE 125 MCG TAB PO SCH (06:00)
--- NOTE | 2018-10-04 08:38 | CONS ---
Assessment/Plan Assessment/Plan Assessment/Plan (Daily) 1. acute Kidney injury due to Prerenal azotemid due to decreased PO intake - now improved, s/p IVF hydration 2. Dyphagia 3. H/o CAD 4. H/O HTN 5. H/o Thyroidecotmy, now Hypothyroidsm Plan: BUN/Cr improved to 13/1.17, other electrolytes stable Coreg 6/25 mg BID Levothyroxien for hypothyroidism pt is refusing to have PO abx, currenlty on IV levaquin, ID followin g s/p EGD negative for acute findings will follow up Consultation Date/Type/Reason Admit Date/Time September 29, 2018 at 14:33 Initial Consult Date Type of Consult NEPHROLOGY Requesting Provider: VANNESSA RECINOS MD Date/Time of Note DATE: 10/04/18 TIME: 08:38 Exam/Review of Systems Exam Vitals Vital Signs Date Temp Pulse Resp B/P (MAP) Pulse Ox O2 O2 Flow FiO2 Time Delivery Rate 10/04/18 98.0 70 14 150/65 98 Room Air 07:56 (93) 10/02/18 15 20:28 Intake and Output 10/03/18 10/03/18 10/04/18 1515:00 23:00 07:00 IntakeIntake Total 320 ml 300 ml BalanceBalance 320 ml 300 ml Exam Constitutional: alert Respiratory: normal air movement, congested cough, diminished breath sounds Cardiovascular: regular rate and rhythm, nl pulses Gastrointestinal: soft, non-tender Musculoskeletal: nl extremities to inspection, muscle weakness, swelling Extremities: normal pulses Neurological: KEY ATTENDANT II-XII intact, nl mental status, nl speech Results Result Diagram: 10/03/18 0445 10/03/18 0445 Medications Medication Current Medications Acetaminophen (Tylenol Tab) 650 mg Q4H PRN PO MILD PAIN(1-3)OR ELEVATED TEMP Last administered on 10/03/18at 07:58; Admin Dose 650 MG; Start 09/29/18 at 18:00 Diclofenac Sodium (Voltaren 1% Gel) 2 gm QID PRN TP PAIN; Start 09/29/18 at 18:00 Carvedilol (Coreg) 6.25 mg BID PO Last administered on 10/03/18at 21:40; Admin Dose 6.25 MG; Start 09/29/18 at 21:00 Ranolazine (Ranexa) 500 mg Q12 PO Last administered on 10/03/18 21:36; Admin Dose 500 MG; Start 09/29/18 at 21:00 Amylase/Lipase/ Protease (CREON (12k-38k-60k)) 2 cap WITH MEALS PO Last administered on 10/03/18 18:34; Admin Dose 2 CAP; Start 09/29/18 at 19:30 Ergocalciferol (Drisdol) 50,000 unit Q7D PO Last administered on 09/29/18 18:43; Admin Dose 50,000 UNIT; Start 09/29/18 at 18:00 Enoxaparin Sodium (Lovenox) 30 mg DAILY SC Last administered on 10/03/18 0 8:14; Admin Dose 30 MG; Start 09/29/18 at 21:00 Pantoprazole (Protonix Tab) 40 mg BID@0600,1800 PO Last administered on 10/04/18 05:59; Admin Dose 40 MG; Start 09/30/18 at 06:00 Phenol (Chloraseptic Throat [place]) 2 spray Q2H PRN [place] SORE THROAT Last administered on 10/01/18 08:32; Admin Dose 2 SPRAY; Start 10/01/18 at 06:30 Bisacodyl (Dulcolax Supp) 10 mg DAILY PRN [place] CONSTIPATION; Start 10/01/18 at 17:00 Aztreonam 2 gm/ Sodium Chloride 100 ml @ 100 mls/hr Q12 IVPB Last administered on 10/03/18 21:36; Admin Dose 100 MLS/HR; Start 10/03/18 at 00:00 Lubiprostone (Amitiza) 24 mcg BID PO Last administered on 10/03/18 21:36; Admin Dose 24 MCG; Start 10/03/18 at 09:00 Levothyroxine Sodium (Synthroid) 125 mcg DAILY@06 PO Last administered on 10/04/18 06:00; Admin Dose 125 MCG; Start 10/04/18 at 06:00 Clonidine (Catapres) 0.1 mg Q6H PRN PO SBP >160 Last administered on 10/04/18 06:00; Admin Dose 0.1 MG; Start 10/04/18 at 06:00 MEGHAN BERNARD MD October 04, 2018 08:38
[2018-10-04] MEDS: AZTREONAM 2 GM in SOD CHLORIDE 0.9% 100 ML IVPB SCH (09:59)
[2018-10-04] MEDS: CREON (12k-38k-60k) 1 CAP PO SCH ×3 (09:59→18:04)
[2018-10-04] MEDS: LUBIPROSTONE 24 MCG CAP PO SCH ×2 (10:00→21:00)
[2018-10-04] MEDS: RANOLAZINE (SR) 500 MG TAB PO SCH ×2 (10:00→20:24)
[2018-10-04] MEDS: ENOXAPARIN 30 MG/0.3 ML SYG SC SCH (10:04)
[2018-10-04] MEDS: ACETAMINOPHEN 325 MG TAB PO PRN (10:08)
[2018-10-04] MEDS ORDERED: LEVOFLOXACIN 500MG/D5W (PMX) 100 ML IVPB ONE (13:00)
--- NOTE | 2018-10-04 14:36 | CONS ---
Assessment/Plan Assessment/Plan Hospital Course (Demo Recall) Patient had a fall last night after having bowel movement in the bathroom she said she was lightheaded currently awake alert and in no distress, family at bedside. Urine culture grew E. coli Antimicrobials: Levofloxacin, status post aztreonam CT of the brain this morning revealed no evidence of acute intracranial abnormality Physical examination: Well-nourished well-developed fragile elderly Macedonian- speaking woman who is alert in no distress. Head atraumatic normocephalic neck is supple chest rise symmetrical breath sounds clear. Heart: S1-S2. Abdomen soft bowel sounds present. Extremities without cyanosis Assessment: 1. Status post fall 2. E. coli UTI 3. Dysphasia/odynophagia, GI on case 4. Insulin allergy Plan: Patient remains stable refusing p.o. antibiotics, will keep on IV levofloxacin, add probiotics Consultation Date/Type/Reason Admit Date/Time September 29, 2018 at 14:33 Initial Consult Date 09/29/18 Type of Consult id Requesting Provider: VANNESSA RECINOS MD Date/Time of Note DATE: 10/04/18 TIME: 14:36 Exam/Review of Systems Exam Vitals Vital Signs Date Temp Pulse Resp B/P (MAP) Pulse Ox O2 O2 Flow FiO2 Time Delivery Rate 10/04/18 98.0 70 14 150/65 98 Room Air 07:56 (93) 10/02/18 15 20:28 Intake and Output 10/03/18 10/03/18 10/04/18 1515:00 23:00 07:00 IntakeIntake Total 320 ml 300 ml BalanceBalance 320 ml 300 ml Results Result Diagram: 10/04/18 0834 10/04/18 0834 Results 24hrs Laboratory Tests Test 10/04/18 08:34 White Blood Count 4.8 Red Blood Count 4.10 L Hemoglobin 11.8 L Hematocrit 35.5 L Mean Corpuscular Volume 86.6 Mean Corpuscular Hemoglobin 28.8 L Mean Corpuscular Hemoglobin Concent 33.2 Red Cell Distribution Width 11.7 Platelet Count 130 L Mean Platelet Volume 9.2 Immature Granulocytes % 0.200 Neutrophils % 78.8 H Lymphocytes % 14.8 L Monocytes % 5.4 Eosinophils % 0.6 Basophils % 0.2 Nucleated Red Blood Cells % 0.0 Immature Granulocytes # 0.010 Neutrophils # 3.8 Lymphocytes # 0.7 L Monocytes # 0.3 Eosinophils # 0.0 Basophils # 0.0 Nucleated Red Blood Cells # 0.0 Sodium Level 140 Potassium Level 3.9 Chloride Level 107 Carbon Dioxide Level 24 Anion Gap 9 Blood Urea Nitrogen 13 Creatinine 1.17 H Est Glomerular Filtrat Rate mL/min Glucose Level 92 Calcium Level 8.7 Total Bilirubin 0.5 Direct Bilirubin 0.00 Indirect Bilirubin 0.5 Aspartate Amino Transf (AST/SGOT) 47 H Alanine Aminotransferase (ALT/SGPT) 90 H Alkaline Phosphatase 89 Total Protein 6.4 Albumin 3.6 Globulin 2.80 Albumin/Globulin Ratio 1.28 Medications Medication Current Medications Acetaminophen (Tylenol Tab) 650 mg Q4H PRN PO MILD PAIN(1-3)OR ELEVATED TEMP Last administered on 10/04/18 10:08; Admin Dose 650 MG; Start 09/29/18 at 18:00 Diclofenac Sodium (Voltaren 1% Gel) 2 gm QID PRN TP PAIN; Start 09/29/18 at 18:00 Carvedilol (Coreg) 6.25 mg BID PO Last administered on 10/04/18 10:02; Admin Dose 6.25 MG; Start 09/29/18 at 21:00 Ranolazine (Ranexa) 500 mg Q12 PO Last administered on 10/04/18 10:00; Admin Dose 500 MG; Start 09/29/18 at 21:00 Amylase/Lipase/ Protease (CREON (12k-38k-60k)) 2 cap WITH MEALS PO Last administered on 10/04/18 13:31; Admin Dose 2 CAP; Start 09/29/18 at 19:30 Ergocalciferol (Drisdol) 50,000 unit Q7D PO Last administered on 09/29/18 18:43; Admin Dose 50,000 UNIT; Start 09/29/18 at 18:00 Enoxaparin Sodium (Lovenox) 30 mg DAILY SC Last administered on 10/04/18 10:04; Admin Dose 30 MG; Start 09/29/18 at 21:00 Pantoprazole (Protonix Tab) 40 mg BID@0600,1800 PO Last administered on 10/04/18 05:59; Admin Dose 40 MG; Start 09/30/18 at 06:00 Phenol (Chloraseptic Throat [place]) 2 spray Q2H PRN [place] SORE THROAT Last administered on 10/01/18at 08:32; Admin Dose 2 SPRAY; Start 10/01/18 at 06:30 Bisacodyl (Dulcolax Supp) 10 mg DAILY PRN [place] CONSTIPATION; Start 10/01/18 at 17:00 Lubiprostone (Amitiza) 24 mcg BID PO Last administered on 10/04/18at 10:00; Admin Dose 24 MCG; Start 10/03/18 at 09:00 Levothyroxine Sodium (Synthroid) 125 mcg DAILY@06 PO Last administered on 10/04/18at 06:00; Admin Dose 125 MCG; Start 10/04/18 at 06:00 Clonidine (Catapres) 0.1 mg Q6H PRN PO SBP >160 Last administered on 10/04/18at 06:00; Admin Dose 0.1 MG; Start 10/04/18 at 06:00 Levofloxacin/ Dextrose 50 ml @ 50 mls/hr Q24H IVPB ; Start 10/05/18 at 13:00 WILLY SANTILLAN NP October 04, 2018 14:36
--- NOTE | 2018-10-04 15:12 | PN ---
Date/Time of Note Date/Time of Note DATE: 10/04/18 TIME: 15:12 Assessment/Plan VTE Prophylaxis Risk score (from N[facility])>0 risk: 4 [place] [facility] [place] Pharmacological prophylaxis: NA/contraindicated Pharm contraindication: thrombocytopenia Lines/Catheters IV Catheter Type (from [facility]): Peripheral IV Urinary Cath still in place: No Assessment/Plan Hospital Course Patient is status post mechanical fall overnight with small abrasion to the posterior head, patient is awake alert, status post CT of the brain which is unremarkable. Continue close observation. Patient able to tolerate diet without nausea and vomiting states improvement with swallowing. Patient urine culture came back positive for E. coli, continue IV Levaquin since patient is refusing to take p.o. Assessment/Plan -Acute gastritis, continue PPI. -Progressive dysphagia and odynophagia, resolving, no etiology found during EGD. Patient tolerates clear liquid diet well, will progress to mechanical soft Dr. Junior is following in gastroenterology consultation. -Transaminitis, resolving. -E. coli UTI. Continue Levaquin. -Hypothyroidism, s/p thyroidectomy, continue levothyroxine -Hypertension. -Pancytopenia Further recommendations based on clinical course. Plan of care discussed with Dr. Garcia. Result Diagram: 10/04/18 0834 10/04/18 0834 Results 24hrs Laboratory Tests Test 10/04/18 08:34 White Blood Count 4.8 Red Blood Count 4.10 L Hemoglobin 11.8 L Hematocrit 35.5 L Mean Corpuscular Volume 86.6 Mean Corpuscular Hemoglobin 28.8 L Mean Corpuscular Hemoglobin Concent 33.2 Red Cell Distribution Width 11.7 Platelet Count 130 L Mean Platelet Volume 9.2 Immature Granulocytes % 0.200 Neutrophils % 78.8 H Lymphocytes % 14.8 L Monocytes % 5.4 Eosinophils % 0.6 Basophils % 0.2 Nucleated Red Blood Cells % 0.0 Immature Granulocytes # 0.010 Neutrophils # 3.8 Lymphocytes # 0.7 L Monocytes # 0.3 Eosinophils # 0.0 Basophils # 0.0 Nucleated Red Blood Cells # 0.0 Sodium Level 140 Potassium Level 3.9 Chloride Level 107 Carbon Dioxide Level 24 Anion Gap 9 Blood Urea Nitrogen 13 Creatinine 1.17 H Est Glomerular Filtrat Rate mL/min Glucose Level 92 Calcium Level 8.7 Total Bilirubin 0.5 Direct Bilirubin 0.00 Indirect Bilirubin 0.5 Aspartate Amino Transf (AST/SGOT) 47 H Alanine Aminotransferase (ALT/SGPT) 90 H Alkaline Phosphatase 89 Total Protein 6.4 Albumin 3.6 Globulin 2.80 Albumin/Globulin Ratio 1.28 Exam/Review of Systems Exam Vitals Vital Signs Date Temp Pulse Resp B/P (MAP) Pulse Ox O2 O2 Flow FiO2 Time Delivery Rate 10/04/18 98.0 70 14 150/65 98 Room Air 07:56 (93) 10/02/18 15 20:28 Intake and Output 10/03/18 10/03/18 10/04/18 1515:00 23:00 07:00 IntakeIntake Total 320 ml 300 ml BalanceBalance 320 ml 300 ml Exam Constitutional: alert, oriented Respiratory: clear to auscultation Cardiovascular: nl pulses Gastrointestinal: soft, non-tender Neurological: nl mental status Skin: nl turgor Results Results 24hrs Laboratory Tests Test 10/04/18 08:34 White Blood Count 4.8 Red Blood Count 4.10 L Hemoglobin 11.8 L Hematocrit 35.5 L Mean Corpuscular Volume 86.6 Mean Corpuscular Hemoglobin 28.8 L Mean Corpuscular Hemoglobin Concent 33.2 Red Cell Distribution Width 11.7 Platelet Count 130 L Mean Platelet Volume 9.2 Immature Granulocytes % 0.200 Neutrophils % 78.8 H Lymphocytes % 14.8 L Monocytes % 5.4 Eosinophils % 0.6 Basophils % 0.2 Nucleated Red Blood Cells % 0.0 Immature Granulocytes # 0.010 Neutrophils # 3.8 Lymphocytes # 0.7 L Monocytes # 0.3 Eosinophils # 0.0 Basophils # 0.0 Nucleated Red Blood Cells # 0.0 Sodium Level 140 Potassium Level 3.9 Chloride Level 107 Carbon Dioxide Level 24 Anion Gap 9 Blood Urea Nitrogen 13 Creatinine 1.17 H Est Glomerular Filtrat Rate mL/min Glucose Level 92 Calcium Level 8.7 Total Bilirubin 0.5 Direct Bilirubin 0.00 Indirect Bilirubin 0.5 Aspartate Amino Transf (AST/SGOT) 47 H Alanine Aminotransferase (ALT/SGPT) 90 H Alkaline Phosphatase 89 Total Protein 6.4 Albumin 3.6 Globulin 2.80 Albumin/Globulin Ratio 1.28 Medications Medication Current Medications Acetaminophen (Tylenol Tab) 650 mg Q4H PRN PO MILD PAIN(1-3)OR ELEVATED TEMP Last administered on 5/15/19at 10:08; Admin Dose 650 MG; Start 09/29/18 at 18:00 Diclofenac Sodium (Voltaren 1% Gel) 2 gm QID PRN TP PAIN; Start 09/29/18 at 18:00 Carvedilol (Coreg) 6.25 mg BID PO Last administered on 10/04/18 10:02; Admin Dose 6.25 MG; Start 09/29/18 at 21:00 Ranolazine (Ranexa) 500 mg Q12 PO Last administered on 10/04/18 10:00; Admin Dose 500 MG; Start 09/29/18 at 21:00 Amylase/Lipase/ Protease (CREON (12i-53k-60k)) 2 cap WITH MEALS PO Last administered on 10/04/18 13:31; Admin Dose 2 CAP; Start 09/29/18 at 19:30 Ergocalciferol (Drisdol) 50,000 unit Q7D PO Last administered on 09/29/18 18:43; Admin Dose 50,000 UNIT; Start 09/29/18 at 18:00 Enoxaparin Sodium (Lovenox) 30 mg DAILY SC Last administered on 10/04/18 10:04; Admin Dose 30 MG; Start 09/29/18 at 21:00 Pantoprazole (Protonix Tab) 40 mg BID@0600,1800 PO Last administered on 10/04/18 05:59; Admin Dose 40 MG; Start 09/30/18 at 06:00 Phenol (Chloraseptic Throat [place]) 2 spray Q2H PRN [place] SORE THROAT Last administered on 10/01/18 08:32; Admin Dose 2 SPRAY; Start 10/01/18 at 06:30 Bisacodyl (Dulcolax Supp) 10 mg DAILY PRN [place] CONSTIPATION; Start 10/01/18 at 17:00 Lubiprostone (Amitiza) 24 mcg BID PO Last administered on 10/04/18 10:00; Admin Dose 24 MCG; Start 10/03/18 at 09:00 Levothyroxine Sodium (Synthroid) 125 mcg DAILY@06 PO Last administered on 10/04/18 06:00; Admin Dose 125 MCG; Start 10/04/18 at 06:00 Clonidine (Catapres) 0.1 mg Q6H PRN PO SBP >160 Last administered on 10/04/18at 06:00; Admin Dose 0.1 MG; Start 10/04/18 at 06:00 Levofloxacin/ Dextrose 50 ml @ 50 mls/hr Q24H IVPB ; Start 10/05/18 at 13:00 Lactobacillus Acidophilus (Florajen3 Capsule) 1 each BID PO ; Start 10/04/18 at 21:00 ANDREE CASTILLO October 04, 2018 15:12
--- NOTE | 2018-10-04 17:29 | CONS ---
Assessment/Plan Assessment/Plan Assessment/Plan (Daily) Assessment/Plan Hospital Course (Demo Recall) 78 yo with dysphagia, s/p EGD 10/02 1. Acute gastritis 2. Dysphagia, odynophagia -no etiology found during EGD -may consider an appetite stimulant -TSH elevated could be due to an enlarged thyroid 3. Weight loss 4. Hypothyroidism 5. Possible CAD 6. LUQ abdominal pain -constipation vs pancreas -bowel regimen and lipase/amylase labs (pt is taking creon) Plan: Lipase/amylase Pending pathology, negative for bacteria or eosinophilic esophagitis Continue with ppi Zinc sulfate to 20 mg daily Carafate gargle. And patient refused Megace or Marinol Consultation Date/Type/Reason Admit Date/Time September 29, 2018 at 14:33 Initial Consult Date 09/29/18 Requesting Provider: VANNESSA RECINOS MD Date/Time of Note DATE: 10/04/18 TIME: 17:27 24 HR Interval Summary Free Text/Dictation Patient complains of burning sensation in the mouth and also no taste. No abdominal pain, appetite is poor Exam/Review of Systems Exam Vitals Vital Signs Date Temp Pulse Resp B/P (MAP) Pulse Ox O2 O2 Flow FiO2 Time Delivery Rate 10/04/18 98.0 70 14 150/65 98 Room Air 07:56 (93) 10/02/18 15 20:28 Intake and Output 10/03/18 10/03/18 10/04/18 1414:59 22:59 06:59 IntakeIntake Total 320 ml 300 ml BalanceBalance 320 ml 300 ml Constitutional: alert, oriented, well developed Psych: no complaints, nl mood/affect Head: normocephalic, atraumatic Eyes: nl conjunctiva, EOMI, nl lids, nl sclera, PERRL ENMT: nl external ears & nose, nl lips & teeth, nl nasal mucosa & septum Neck: supple, non-tender Respiratory: clear to auscultation, normal air movement Cardiovascular: regular rate and rhythm, nl pulses Gastrointestinal: soft, nl liver, spleen, non-tender Musculoskeletal: nl extremities to inspection, nl gait and stance Extremities: normal pulses Neurological: CHIEF COMMERCIAL OFFICER II-XII intact, nl mental status, nl speech, nl strength Skin: nl turgor; No rash or lesions Lymph: nl lymph nodes Results Result Diagram: 10/04/18 0834 10/04/18 0834 Results 24hrs Laboratory Tests Test 10/04/18 08:34 White Blood Count 4.8 Red Blood Count 4.10 L Hemoglobin 11.8 L Hematocrit 35.5 L Mean Corpuscular Volume 86.6 Mean Corpuscular Hemoglobin 28.8 L Mean Corpuscular Hemoglobin Concent 33.2 Red Cell Distribution Width 11.7 Platelet Count 130 L Mean Platelet Volume 9.2 Immature Granulocytes % 0.200 Neutrophils % 78.8 H Lymphocytes % 14.8 L Monocytes % 5.4 Eosinophils % 0.6 Basophils % 0.2 Nucleated Red Blood Cells % 0.0 Immature Granulocytes # 0.010 Neutrophils # 3.8 Lymphocytes # 0.7 L Monocytes # 0.3 Eosinophils # 0.0 Basophils # 0.0 Nucleated Red Blood Cells # 0.0 Sodium Level 140 Potassium Level 3.9 Chloride Level 107 Carbon Dioxide Level 24 Anion Gap 9 Blood Urea Nitrogen 13 Creatinine 1.17 H Est Glomerular Filtrat Rate mL/min Glucose Level 92 Calcium Level 8.7 Total Bilirubin 0.5 Direct Bilirubin 0.00 Indirect Bilirubin 0.5 Aspartate Amino Transf (AST/SGOT) 47 H Alanine Aminotransferase (ALT/SGPT) 90 H Alkaline Phosphatase 89 Total Protein 6.4 Albumin 3.6 Globulin 2.80 Albumin/Globulin Ratio 1.28 Medications Medication Current Medications Acetaminophen (Tylenol Tab) 650 mg Q4H PRN PO MILD PAIN(1-3)OR ELEVATED TEMP Last administered on 10/04/18at 10:08; Admin Dose 650 MG; Start 09/29/18 at 18:00 Diclofenac Sodium (Voltaren 1% Gel) 2 gm QID PRN TP PAIN; Start 09/29/18 at 18:00 Carvedilol (Coreg) 6.25 mg BID PO Last administered on 10/04/18 10:02; Admin Dose 6.25 MG; Start 09/29/18 at 21:00 Ranolazine (Ranexa) 500 mg Q12 PO Last administered on 10/04/18at 10:00; Admin Dose 500 MG; Start 09/29/18 at 21:00 Amylase/Lipase/ Protease (CREON (12k-38k-60k)) 2 cap WITH MEALS PO Last administered on 10/04/18at 13:31; Admin Dose 2 CAP; Start 09/29/18 at 19:30 Ergocalciferol (Drisdol) 50,000 unit Q7D PO Last administered on 09/29/18 18:43; Admin Dose 50,000 UNIT; Start 09/29/18 at 18:00 Enoxaparin Sodium (Lovenox) 30 mg DAILY SC Last administered on 10/04/18at 10:04; Admin Dose 30 MG; Start 09/29/18 at 21:00 Pantoprazole (Protonix Tab) 40 mg BID@0600,1800 PO Last administered on 10/04/18at 05:59; Admin Dose 40 MG; Start 09/30/18 at 06:00 Phenol (Chloraseptic Throat [place]) 2 spray Q2H PRN [place] SORE THROAT Last administered on 10/01/18at 08:32; Admin Dose 2 SPRAY; Start 10/01/18 at 06:30 Bisacodyl (Dulcolax Supp) 10 mg DAILY PRN [place] CONSTIPATION; Start 10/01/18 at 17:00 Lubiprostone (Amitiza) 24 mcg BID PO Last administered on 10/04/18at 10:00; Admin Dose 24 MCG; Start 10/03/18 at 09:00 Levothyroxine Sodium (Synthroid) 125 mcg DAILY@06 PO Last administered on 10/04/18 06:00; Admin Dose 125 MCG; Start 10/04/18 at 06:00 Clonidine (Catapres) 0.1 mg Q6H PRN PO SBP >160 Last administered on 10/04/18 06:00; Admin Dose 0.1 MG; Start 10/04/18 at 06:00 Levofloxacin/ Dextrose 50 ml @ 50 mls/hr Q24H IVPB ; Start 10/05/18 at 13:00 Lactobacillus Acidophilus (Florajen3 Capsule) 1 each BID PO ; Start 10/04/18 at 21:00 Neomycin/ Polymyxin/ Bacitracin (Neosporin Topical Oint) 1 applic BID TOP ; St art 10/04/18 at 21:00 Potassium Chloride/Sodium Chloride 1,000 ml @ 60 mls/hr [id number] IV ; Start at 16:30 GRACIELA TORIBIO MD October 04, 2018 17:29
[2018-10-04] MEDS ORDERED: CIPROFLOXACIN 500 MG TAB PO SCH (18:00)
[2018-10-04] MEDS: 1/2 NS + KCL 20 MEQ 1,000 ML IV SCH (18:05)
[2018-10-04] MEDS: L ACIDOPHIL/B LACTIS/B LONGUM CAPSULE PO SCH (20:25)
[2018-10-04] MEDS: NEOMYC/POLYMYX/BACIT 30 GM OINT TOP SCH (20:27)
[2018-10-04] MEDS ORDERED: ZOLPIDEM 5 MG TAB PO PRN (22:30)
[2018-10-05 01:36] VITALS: BP 138/65; PULSE 66; RESP 20
[2018-10-05] MEDS: PANTOPRAZOLE (EC) 40 MG TAB PO SCH (06:10)
[2018-10-05] MEDS: LEVOTHYROXINE 125 MCG TAB PO SCH (06:10)
[2018-10-05 07:33] VITALS: BP 139/65; PULSE 71; RESP 18
[2018-10-05] MEDS: RANOLAZINE (SR) 500 MG TAB PO SCH (08:55)
[2018-10-05] MEDS: LUBIPROSTONE 24 MCG CAP PO SCH (08:55)
[2018-10-05] MEDS: CREON (12k-38k-60k) 1 CAP PO SCH ×2 (08:55→12:26)
[2018-10-05] MEDS: L ACIDOPHIL/B LACTIS/B LONGUM CAPSULE PO SCH (08:55)
[2018-10-05] MEDS: NEOMYC/POLYMYX/BACIT 30 GM OINT TOP SCH (08:56)
[2018-10-05] MEDS: ENOXAPARIN 30 MG/0.3 ML SYG SC SCH (08:57)
[2018-10-05] MEDS: ACETAMINOPHEN 325 MG TAB PO PRN (09:01)
[2018-10-05] MEDS: 1/2 NS + KCL 20 MEQ 1,000 ML IV SCH ×2 (09:10→12:26)
[2018-10-05] MEDS ORDERED: LEVOFLOXACIN 250MG/D5W (PMX) 50 ML IVPB SCH (13:00)
[2018-10-05] MEDS ORDERED: ZINC SULFATE 220 MG CAP PO ONE (13:00)
--- NOTE | 2018-10-05 13:50 | CONS ---
Assessment/Plan Assessment/Plan Hospital Course (Demo Recall) Alert feels better no fevers overnight Urine culture grew E. coli Antimicrobials: Levofloxacin, status post aztreonam CT of the brain this morning revealed no evidence of acute intracranial a bnormality Physical examination: Well-nourished well-developed fragile elderly [place]odian- speaking woman who is alert in no distress. Head atraumatic normocephalic neck is supple chest rise symmetrical breath sounds clear. Heart: S1-S2. Abdomen soft bowel sounds present. Extremities without cyanosis Assessment: 1. Status post fall 2. E. coli UTI 3. Dysphasia/odynophagia, GI on case no abnormality per EGD, pathology report noted all negative 4. Insulin allergy Anticipate discharge on oral Levaquin to complete 7 days total antibiotics Discussed with patient and family at bedside Consultation Date/Type/Reason Admit Date/Time September 29, 2018 at 14:33 Initial Consult Date 09/29/18 Type of Consult id Requesting Provider: VANNESSA RECINOS MD Date/Time of Note DATE: 10/05/18 TIME: 13:49 Exam/Review of Systems Exam Vitals Vital Signs Date Temp Pulse Resp B/P (MAP) Pulse Ox O2 O2 Flow FiO2 Time Delivery Rate 10/05/18 98.0 71 18 139/65 96 07:33 (89) 10/04/18 Room Air 07:56 10/02/18 15 20:28 Intake and Output 10/04/18 10/04/18 10/05/18 1515:00 23:00 07:00 IntakeIntake Total 100 ml 780 ml 950 ml BalanceBalance 100 ml 780 ml 950 ml Results Result Diagram: 10/04/18 0834 10/05/18 0434 Results 24hrs Laboratory Tests Test 10/04/18 16:54 10/05/18 04:34 Magnesium Level 2.0 Sodium Level 141 Potassium Level 4.3 Chloride Level 107 Carbon Dioxide Level 26 Anion Gap 8 Blood Urea Nitrogen 13 Creatinine 1.13 H Est Glomerular Filtrat Rate mL/min Glucose Level 94 Calcium Level 8.7 Medications Medication Current Medications Acetaminophen (Tylenol Tab) 650 mg Q4H PRN PO MILD PAIN(1-3)OR ELEVATED TEMP Last administered on 10/05/18at 09:01; Admin Dose 650 MG; Start 09/29/18 at 18:00 Diclofenac Sodium (Voltaren 1% Gel) 2 gm QID PRN TP PAIN; Start 09/29/18 at 18:00 Carvedilol (Coreg) 6.25 mg BID PO Last administered on 10/05/18 08:55; Admin Dose 6.25 MG; Start 09/29/18 at 21:00 Ranolazine (Ranexa) 500 mg Q12 PO Last administered on 10/05/18 08:55; Admin Dose 500 MG; Start 09/29/18 at 21:00 Amylase/Lipase/ Protease (CREON (75h-14a-62k)) 2 cap WITH MEALS PO Last administered on 10/05/18 12:26; Admin Dose 2 CAP; Start 09/29/18 at 19:30 Ergocalciferol (Drisdol) 50,000 unit Q7D PO Last administered on 09/29/18 18:43; Admin Dose 50,000 UNIT; Start 09/29/18 at 18:00 Enoxaparin Sodium (Lovenox) 30 mg DAILY SC Last administered on 10/05/18 08:57; Admin Dose 30 MG; Start 09/29/18 at 21:00 Pantoprazole (Protonix Tab) 40 mg BID@0600,1800 PO Last administered on 10/05/18 06:10; Admin Dose 40 MG; Start 09/30/18 at 06:00 Phenol (Chloraseptic Throat [place]) 2 spray Q2H PRN [place] SORE THROAT Last administered on 10/01/18 08:32; Admin Dose 2 SPRAY; Start 10/01/18 at 06:30 Bisacodyl (Dulcolax Supp) 10 mg DAILY PRN [place] CONSTIPATION; Start 10/01/18 at 17:00 Lubiprostone (Amitiza) 24 mcg BID PO Last administered on 10/05/18 08:55; Admin Dose 24 MCG; Start 10/03/18 at 09:00 Levothyroxine Sodium (Synthroid) 125 mcg DAILY@06 PO Last administered on 10/05/18 06:10; Admin Dose 125 MCG; Start 10/04/18 at 06:00 Clonidine (Catapres) 0.1 mg Q6H PRN PO SBP >160 Last administered on 10/04/18 06:00; Admin Dose 0.1 MG; Start 10/04/18 at 06:00 Levofloxacin/ Dextrose 50 ml @ 50 mls/hr Q24H IVPB Last administered on 10/05/18 12:26; Admin Dose 50 MLS/HR; Start 10/05/18 at 13:00 Lactobacillus Acidophilus (Florajen3 Capsule) 1 each BID PO Last administered on 10/05/18 08:55; Admin Dose 1 EACH; Start 10/04/18 at 21:00 Neomycin/ Polymyxin/ Bacitracin (Neosporin Topical Oint) 1 applic BID TOP Last administered on 10/05/18 08:56; Admin Dose 1 APPLIC; Start 10/04/18 at 21:00 Potassium Chloride/Sodium Chloride 1,000 ml @ 60 mls/hr [id number] IV Last administered on 10/05/18 12:26; Admin Dose 60 MLS/HR; Start 10/04/18 at 16:30 Zolpidem Tartrate (Ambien) 5 mg HS MAY REPEAT X 1 PRN PO INSOMNIA Last administered on 10/04/18 22:34; Admin Dose 5 MG; Start 10/04/18 at 22:30 Sucralfate (Carafate Susp) 1 gm QID GTB ; Start 10/05/18 at 13:00 WILLY SANTILLAN NP October 05, 2018 13:50
[2018-10-05] MEDS: SUCRALFATE (100 MG/ML) 10ML CUP GTB SCH ×2 (13:56→16:47)
[2018-10-05 14:00] VITALS: BP 135/64; PULSE 70; RESP 18
--- NOTE | 2018-10-05 15:14 | CONS ---
Assessment/Plan Assessment/Plan Assessment/Plan (Daily) 1. acute Kidney injury due to Prerenal azotemid due to decreased PO intake - now improved, s/p IVF hydration 2. Dyphagia 3. H/o CAD 4. H/O HTN 5. H/o Thyroidecotmy, now Hypothyroidsm Plan: BUN/Cr improved to 13/1.13, other electrolytes stable Coreg 6/25 mg BID Levothyroxien for hypothyroidism pt is refusing to have PO abx, currenlty on IV levaquin, ID followin g s/p EGD negative for acute findings will follow up Consultation Date/Type/Reason Admit Date/Time September 29, 2018 at 14:33 Initial Consult Date Type of Consult NEPHROLOGY Requesting Provider: VANNESSA RECINOS MD Date/Time of Note DATE: 10/05/18 TIME: 15:14 Exam/Review of Systems Exam Vitals Vital Signs Date Temp Pulse Resp B/P (MAP) Pulse Ox O2 O2 Flow FiO2 Time Delivery Rate 10/05/18 98.0 71 18 139/65 96 07:33 (89) 10/04/18 Room Air 07:56 10/02/18 15 20:28 Intake and Output 10/04/18 10/04/18 10/05/18 1515:00 23:00 07:00 IntakeIntake Total 100 ml 780 ml 950 ml BalanceBalance 100 ml 780 ml 950 ml Results Result Diagram: 10/04/18 0834 10/05/18 0434 Results 24hrs Laboratory Tests Test 10/04/18 16:54 10/05/18 04:34 Magnesium Level 2.0 Sodium Level 141 Potassium Level 4.3 Chloride Level 107 Carbon Dioxide Level 26 Anion Gap 8 Blood Urea Nitrogen 13 Creatinine 1.13 H Est Glomerular Filtrat Rate mL/min Glucose Level 94 Calcium Level 8.7 Medications Medication Current Medications Acetaminophen (Tylenol Tab) 650 mg Q4H PRN PO MILD PAIN(1-3)OR ELEVATED TEMP Last administered on 10/05/18at 09:01; Admin Dose 650 MG; Start 09/29/18 at 18:00 Diclofenac Sodium (Voltaren 1% Gel) 2 gm QID PRN TP PAIN; Start 09/29/18 at 18:00 Carvedilol (Coreg) 6.25 mg BID PO Last administered on 10/05/18at 08:55; Admin Dose 6.25 MG; Start 09/29/18 at 21:00 Ranolazine (Ranexa) 500 mg Q12 PO Last administered on 10/05/18 08:55; Admin Dose 500 MG; Start 09/29/18 at 21:00 Amylase/Lipase/ Protease (CREON (12k-38k-60k)) 2 cap WITH MEALS PO Last administered on 10/05/18 12:26; Admin Dose 2 CAP; Start 09/29/18 at 19:30 Ergocalciferol (Drisdol) 50,000 unit Q7D PO Last administered on 09/29/18 18:43; Admin Dose 50,000 UNIT; Start 09/29/18 at 18:00 Enoxaparin Sodium (Lovenox) 30 mg DAILY SC Last administered on 10/05/18 08:57; Admin Dose 30 MG; Start 09/29/18 at 21:00 Pantoprazole (Protonix Tab) 40 mg BID@0600,1800 PO Last administered on 10/05/18 06:10; Admin Dose 40 MG; Start 09/30/18 at 06:00 Phenol (Chloraseptic Throat [place]) 2 spray Q2H PRN MT SORE THROAT Last administered on 10/01/18 08:32; Admin Dose 2 SPRAY; Start 10/01/18 at 06:30 Bisacodyl (Dulcolax Supp) 10 mg DAILY PRN [place] CONSTIPATION; Start 10/01/18 at 17:00 Lubiprostone (Amitiza) 24 mcg BID PO Last administered on 10/05/18 08:55; Admin Dose 24 MCG; Start 10/03/18 at 09:00 Levothyroxine Sodium (Synthroid) 125 mcg DAILY@06 PO Last administered on 10/05/18 06:10; Admin Dose 125 MCG; Start 10/04/18 at 06:00 Clonidine (Catapres) 0.1 mg Q6H PRN PO SBP >160 Last administered on 10/04/18 06:00; Admin Dose 0.1 MG; Start 10/04/18 at 06:00 Levofloxacin/ Dextrose 50 ml @ 50 mls/hr Q24H IVPB Last administered on 10/05 12:26; Admin Dose 50 MLS/HR; Start 10/05/18 at 13:00 Lactobacillus Acidophilus (Florajen3 Capsule) 1 each BID PO Last administered on 10/05/18 08:55; Admin Dose 1 EACH; Start 10/04/18 at 21:00 Neomycin/ Polymyxin/ Bacitracin (Neosporin Topical Oint) 1 applic BID TOP Last administered on 10/05/18 08:56; Admin Dose 1 APPLIC; Start 10/04/18 at 21:00 Potassium Chloride/Sodium Chloride 1,000 ml @ 60 mls/hr [id number] IV Last administered on 10/05/18 12:26; Admin Dose 60 MLS/HR; Start 10/04/18 at 16:30 Zolpidem Tartrate (Ambien) 5 mg HS MAY REPEAT X 1 PRN PO INSOMNIA Last administered on 10/04/18 22:34; Admin Dose 5 MG; Start 10/04/18 at 22:30 Sucralfate (Carafate Susp) 1 gm QID GTB Last administered on 10/05/18 13:56; Admin Dose 1 GM; Start 10/05/18 at 13:00 MEGHAN BERNARD MD October 05, 2018 15:14
[2018-10-05] MEDS ORDERED: PANT40TA4 PO (15:45)
[2018-10-05] MEDS ORDERED: CARAS GTB (15:45)
[2018-10-05] MEDS ORDERED: LEVO250T9 PO (15:45)
[2018-10-05] MEDS ORDERED: LEVO125T7 PO (15:45)
--- NOTE | 2018-10-05 17:28 | CONS ---
Assessment/Plan Assessment/Plan Assessment/Plan (Daily) Assessment/Plan Assessment/Plan Assessment/Plan (Daily) Assessment/Plan Hospital Course (Demo Recall) 78 yo with dysphagia, s/p EGD 10/02 1. Acute gastritis 2. Dysphagia, odynophagia -no etiology found during EGD -may consider an appetite stimulant -TSH elevated could be due to an enlarged thyroid 3. Weight loss 4. Hypothyroidism 5. Possible CAD 6. LUQ abdominal pain -constipation vs pancreas -bowel regimen and lipase/amylase labs (pt is taking creon) Plan: Lipase/amylase Pending pathology, negative for bacteria or eosinophilic esophagitis Continue with ppi Zinc sulfate to 220 mg daily Discussed with the daughter [id number] Carafate gargle. And patient refused Megace or Marinol Consultation Date/Type/Reason Admit Date/Time September 29, 2018 at 14:33 Initial Consult Date 09/29/18 Requesting Provider: VANNESSA RECINOS MD Date/Time of Note DATE: 10/05/18 TIME: 17:27 24 HR Interval Summary Constitutional: no complaints Exam/Review of Systems Exam Vitals Vital Signs Date Temp Pulse Resp B/P (MAP) Pulse Ox O2 O2 Flow FiO2 Time Delivery Rate 10/05/18 97.9 70 18 135/64 97 Room Air 14:00 (87) 10/02/18 15 20:28 Intake and Output 10/04/18 10/04/18 10/05/18 1515:00 23:00 07:00 IntakeIntake Total 100 ml 780 ml 950 ml BalanceBalance 100 ml 780 ml 950 ml Constitutional: alert, oriented, well developed Psych: no complaints, nl mood/affect Head: normocephalic, atraumatic Eyes: nl conjunctiva, EOMI, nl lids, nl sclera, PERRL ENMT: nl external ears & nose, nl lips & teeth, nl nasal mucosa & septum Neck: supple, non-tender Respiratory: clear to auscultation, normal air movement Cardiovascular: regular rate and rhythm, nl pulses Gastrointestinal: soft, nl liver, spleen, non-tender Musculoskeletal: nl extremities to inspection, nl gait and stance Extremities: normal pulses Neurological: CHICKEN VACCINATOR II-XII intact, nl mental status, nl speech, nl strength Skin: nl turgor; No rash or lesions Lymph: nl lymph nodes Results Result Diagram: 10/04/18 0834 10/05/18 0434 Results 24hrs Laboratory Tests Test 10/05/18 04:34 Sodium Level 141 Potassium Level 4.3 Chloride Level 107 Carbon Dioxide Level 26 Anion Gap 8 Blood Urea Nitrogen 13 Creatinine 1.13 H Est Glomerular Filtrat Rate mL/min Glucose Level 94 Calcium Level 8.7 Medications Medication Current Medications Acetaminophen (Tylenol Tab) 650 mg Q4H PRN PO MILD PAIN(1-3)OR ELEVATED TEMP Last administered on 10/05/18 09:01; Admin Dose 650 MG; Start 09/29/18 at 18:00 Diclofenac Sodium (Voltaren 1% Gel) 2 gm QID PRN TP PAIN; Start 09/29/18 at 18:00 Carvedilol (Coreg) 6.25 mg BID PO Last administered on 10/05/18 08:55; Admin Dose 6.25 MG; Start 09/29/18 at 21:00 Ranolazine (Ranexa) 500 mg Q12 PO Last administered on 10/05/18 08:55; Admin Dose 500 MG; Start 09/29/18 at 21:00 Amylase/Lipase/ Protease (CREON (12k-38k-60k)) 2 cap WITH MEALS PO Last administered on 10/05/18 12:26; Admin Dose 2 CAP; Start 09/29/18 at 19:30 Ergocalciferol (Drisdol) 50,000 unit Q7D PO Last administered on 09/29/18 18:43; Admin Dose 50,000 UNIT; Start 09/29/18 at 18:00 Enoxaparin Sodium (Lovenox) 30 mg DAILY SC Last administered on 10/05/18 08:57; Admin Dose 30 MG; Start 09/29/18 at 21:00 Pantoprazole (Protonix Tab) 40 mg BID@0600,1800 PO Last administered on 10/05/18 06:10; Admin Dose 40 MG; Start 09/30/18 at 06:00 Phenol (Chloraseptic Throat [place]) 2 spray Q2H PRN [place] SORE THROAT Last administered on 10/01/18 08:32; Admin Dose 2 SPRAY; Start 10/01/18 at 06:30 Bisacodyl (Dulcolax Supp) 10 mg DAILY PRN [place] CONSTIPATION; Start 10/01/18 at 17:00 Lubiprostone (Amitiza) 24 mcg BID PO Last administered on 10/05/18 08:55; Admin Dose 24 MCG; Start 10/03/18 at 09:00 Levothyroxine Sodium (Synthroid) 125 mcg DAILY@06 PO Last administered on 10/05/18 06:10; Admin Dose 125 MCG; Start 10/04/18 at 06:00 Clonidine (Catapres) 0.1 mg Q6H PRN PO SBP >160 Last administered on 10/04/18 06:00; Admin Dose 0.1 MG; Start 10/04/18 at 06:00 Levofloxacin/ Dextrose 50 ml @ 50 mls/hr Q24H IVPB Last administered on 10/05/18 12:26; Admin Dose 50 MLS/HR; Start 10/05/18 at 13:00 Lactobacillus Acidophilus (Florajen3 Capsule) 1 each BID PO Last administered on 10/05/18 08:55; Admin Dose 1 EACH; Start 10/04/18 at 21:00 Neomycin/ Polymyxin/ Bacitracin (Neosporin Topical Oint) 1 applic BID TOP Last administered on 10/05/18 08:56; Admin Dose 1 APPLIC; Start 10/04/18 at 21:00 Potassium Chloride/Sodium Chloride 1,000 ml @ 60 mls/hr [id number] IV Last administered on 10/05/18 12:26; Admin Dose 60 MLS/HR; Start 10/04/18 at 16:30 Zolpidem Tartrate (Ambien) 5 mg HS MAY REPEAT X 1 PRN PO INSOMNIA Last administered on 10/04/18 22:34; Admin Dose 5 MG; Start 10/04/18 at 22:30 Sucralfate (Carafate Susp) 1 gm QID GTB Last administered on 10/05/18 16:47; Admin Dose 1 GM; Start 10/05/18 at 13:00 GRACIELA TORIBIO MD October 05, 2018 17:28
--- NOTE | 2018-10-08 21:35 | DS ---
Date/Time of Note Date/Time of Note DATE: 10/08/18 TIME: 21:31 Discharge Summary Admission/Discharge Info Admit Date/Time September 29, 2018 at 14:33 Discharge Date/Time October 05, 2018 at 17:30 Patient Condition: Stable Hx of Present Illness The patient is an 78-year-old female well known to me from previous admission. The patient has a history of chronic GERD for which she was taking Prilosec. The patient also has history of hypertension, possible coronary artery disease, hypothyroidism, status post total thyroidectomy, mild memory impairment. The patient came to ER with difficulty in swallowing. It was painful for her to swallow and she felt pain in the upper part of the chest near the throat. The patient did not have any vomiting. No reported fever or chills. No reported abdominal pain. No reported chronic anorexia, although the patient for the last 24 hours had not been eating well. The patient did not have any exertional chest pain recently. No reported leg edema. No reported congestive heart failure. No reported headache, dizziness, syncope. No history of dizziness. No history of acute skin rash or any joint swelling. Hospital Course -Acute gastritis, continue PPI. -Progressive dysphagia and odynophagia, resolved, no etiology found during EGD. Biopsy of stomach and esophagus are negative for malignancy. Pt is able to tolerate regular diet. Dr. Junior is following in gastroenterology consultation. -Status post mechanical fall overnight with small abrasion to the posterior head, patient is awake alert, status post CT of the brain which is unremarkable. -Transaminitis, resolving. -E. coli UTI. Continue Levaquin. -Hypothyroidism, s/p thyroidectomy, continue levothyroxine -Hypertension. -Pancytopenia Plan of care discussed with Dr. Garcia. Home Meds Active Scripts Levofloxacin* (Levofloxacin*) 250 Mg Tablet, 250 MG PO DAILY for 5 Days, TAB Prov:ANDREE CASTILLO 10/05/18 Sucralfate* (Carafate*) 1 Gm/10 Ml Susp, 1 GM GTB QID for 30 Days Prov:ANDREE CASTILLO 10/05/18 Levothyroxine Sodium* (Levothyroxine Sodium*) 125 Mcg Tablet, 125 MCG PO DAILY@06 for 30 Days, TAB Prov:ANDREE CASTILLO 10/05/18 Pantoprazole* (Pantoprazole*) 40 Mg Tablet., 40 MG PO BID@0600,1800 for 30 Days Prov:ANDREE CASTILLO 10/05/18 Reported Medications Ergocalciferol (Vitamin D2) (VITAMIN D2) 50,000 Unit Capsule, 88684 UNIT PO Q7D, CAP 09/29/18 [id number]* (Creon DR* 36,000) 36,000 L-114,000-180,000 Unit Capsule., 2 CAP PO WITH MEALS, CAP 09/29/18 Ranolazine* (Ranexa*) 500 Mg Tab.sr.12h, 500 MG PO Q12, TAB 09/29/18 Atorvastatin Calcium (Atorvastatin Calcium) 10 Mg Tablet, 10 MG PO QHS, #30 TAB 09/29/18 Carvedilol* (Carvedilol*) 6.25 Mg Tablet, 6.25 MG PO BID, #60 TAB 09/29/18 Diclofenac Sodium* (Voltaren* Gel) 1% -100 Gm Gel, 2 GM TOP NEEDED, #1 TUB 09/29/18 Discontinued Reported Medications Omeprazole* (Omeprazole*) 40 Mg Capsule., 40 MG PO DAILY, #30 CAP 09/29/18 Levothyroxine Sodium* (Levothyroxine Sodium*) 100 Mcg Tablet, 100 MCG PO BEFORE BREAKFAST, #30 TAB 09/29/18 Follow-up Plan f/up with PMD in 1-2 weeks, f/up with Dr Junior GI in 2-3 weeks. Primary Care Provider Not On Staff Doctor Time spent on discharge: > 30 minutes ANDREE CASTILLO October 08, 2018 21:35
== END 2018-10-05 17:30 | disposition home or self-care (01) | DRG 392 ==
LOC: E/R 12:24 → MS1 14:33
PROVIDERS: ADMIT Internal Medicine; ATTEND Internal Medicine
PROC: 0DB68ZX Excision of Stomach, Via Natural or Artificial Opening Endoscopic, Diagnostic (ICD-10-PCS; 2018-10-02)
PROC: 0DB58ZX Excision of Esophagus, Via Natural or Artificial Opening Endoscopic, Diagnostic (ICD-10-PCS; principal; 2018-10-02 18:00)
DX: R13.10 Dysphagia, unspecified (principal); N17.9 Acute kidney failure, unspecified; D61.818 Other pancytopenia; E44.0 Moderate protein-calorie malnutrition; N39.0 Urinary tract infection, site not specified; K29.00 Acute gastritis without bleeding; K21.9 Gastro-esophageal reflux disease without esophagitis; Z68.21 Body mass index [BMI] 21.0-21.9, adult; I10 Essential (primary) hypertension; R63.4 Abnormal weight loss; E86.0 Dehydration; E89.0 Postprocedural hypothyroidism; B96.20 Unspecified Escherichia coli [E. coli] as the cause of diseases classified elsewhere
CPT/HCPCS: 36415; 70450; 74176; 80048; 80053; 80061; 81001; 82150; 83690; 83735; 84439; 84443; 84484; 85025; 85610; 85730; 86850; 86900; 86901; 87086; 88305; 88312; 88313; 93005; 96374; 96375; J1650; J1956; J2405; J3480; J7030; J7042